=== PATIENT | male | born 1980 | race Caucasian/White ===

== ENCOUNTER 2023-09-25 18:31 | Observation (INO) | payer BC, SELFPAY ==
[2023-09-25 15:57] VITALS: BP 117/69
[2023-09-25 16:10] VITALS: BP 131/73
[2023-09-25 17:13] VITALS: BMI 30.4
[2023-09-25] MEDS: NSS 500 IV (17:15)
--- NOTE | 2023-09-25 17:22 | ED.GENMED ---
History of Present Illness
General
Chief Complaint: DVT/Possible Blood Clot
Source: patient
Exam Limitations: none
Time Seen by Provider: 09/25/23 16:13
Travel History
Have you had any contact with someone who has COVID-19?: No
Do you have any symptoms of coronavirus? Fever > 100 degrees, chills, cough, shortness of breath, sore throat, loss of taste or smell, muscle aches, or headache?: No
History of Present Illness
History of Present Illness:
43-year-old male started with left leg calf pain after a flight to [place] about 2 weeks ago. Pain has been ongoing. Had an initial ultrasound that was negative. However pain is progressed. Now swelling above the knee into the thigh. Was seen by
orthopedic for further evaluation. No chest pain or shortness of breath although patient was near syncope in the doctor's office today.
Past History
Past History
ED Past Medical History: None
ED Past Surgical History: Cardiac (As a child)
Review of Systems
Review of Systems
All Other Systems: Not applicable
Respiratory: Denies trouble breathing
Cardiac: Reports syncope (Near syncope); Denies chest pain
ABD/GI: Reports no symptoms; Denies bloody stools or black stools
Phy Exam
Physical Exam
Physical Exam:
GENERAL: Alert and oriented in no apparent distress
EYE: Orbits normal.
NECK: Supple
CARDIAC: Regular rate and rhythm without any obvious murmurs.
LUNGS: Clear breath sounds,normal
ABDOMEN: Soft, without focal tenderness or distention
NEUROLOGICAL: Alert and oriented , grossly non-focal
SKIN: Warm and dry, no rash or lesion, no discoloration, skin intact.
MUSCULOSKELETAL: Moderate swelling left lower leg with mild color changes below the knee. Good distal pulses and color. Mild swelling to the left thigh.
PSYCH: Normal and appropriate interaction.
Course
Orders/Labs/Results
Orders:
Orders
09/25/23 Dinner
Regular
At Your Request: Full Participation
Does patient need a safe tray?: No
09/25/23 16:03
Legs, left US [US Periph Venous LOWER Ext LT] Urgent
Comment:
Reason For Exam: pain/swelling
09/25/23 17:09
Electrocardiogram (*1) Stat
Reason for Study: Other
Other Reason for Exam: chest pain
Cardiac Monitoring- Treatment ONCE
IV Insert/Care/Rem.- Treatment PRN
0.9% Sodium Chloride 500 ml [Nss] 500 ml IV BOLUS
Pharmacy Request to Place See Dose Instructions PO NOW STA
Discontinue all Active Warfarin orders?: Yes
Nursing to Place Non Medication Order As Directed
Physician Order: PTT 6 hours after initial start of Heparin infusion
Above order entered?: Yes
Pulse Ox/cont/shift [RESP] Stat
Quantity: 1
09/25/23 17:15
Basic Metabolic Panel Urgent
Complete Blood Count/With Diff Urgent
NT-proBNP Urgent
PTT Urgent
Comment: Obtain baseline before beginning heparin infusion if not already collected
Troponin I Urgent
09/25/23 17:29
Heparin 5,000 units .ROUTE .STK-MED ONE
Heparin 58106 Units/250 ml 25,000 units in 250 ml .ROUTE .STK-MED
09/25/23 17:51
Heparin 8,600 units IV NOW STA
Nursing to Place Non Medication Order As Directed
Physician Order: PTT 6 hours after initial start of Heparin infusion
Above order entered?: Yes
09/25/23 18:00
Heparin 25037 Units/250 ml 25,000 units in 250 ml IV PER PROTOCOL
Weight to be used for heparin protocol in kilograms (kg):: 107.2
Protocol:: DVT/PE
PTT Goal Range to be used:: PTT 73 to 111 seconds
Order type:: Initial
INITIAL Infusion Dose (UNITS/KG/hr) & then follow protocol:: 18 units/kg/hr
Infusion Dose in UNITS/hr & then follow protocol (UNITS/hr):: 1,900
INFUSION RATE in mL/hr & then follow protocol (mL/hr):: 19
For DVT/PE algorithm, re-bolus for low PTT?: Yes
PTT less than or equal to 64 seconds:: Re-bolus 80 units/kg (max 10,000units). Increase by 400 units/hr
(+ 4mL/hr)
PTT 64.1 to 72.9 seconds:: Re-bolus 40 units/kg (max 5,000 units). Increase by 200 units/hr
(+ 2mL/hr)
PTT 73 to 111 seconds:: Target Range. No change in rate.
PTT 111.1 to 130.9 seconds:: Decrease rate by 200 units/hr (- 2 mL/hr)
PTT 131 to 199.9 seconds:: HOLD for 1 hr. Then decrease by 300 units/hr (- 3mL/hr)
PTT greater than or equal to 200 seconds:: HOLD for 2 hrs & Notify Provider. Then decrease by 400 units/hr
(- 4mL/hr)
Lab follow-up:: Each change, PTT q6h until 2 consecutive are therapeutic. Then
PTT daily.
Pharmacy Request to Place See Dose Instructions IV DIRECTED
09/25/23 18:03
Heparin 8,600 units IV PRN PRN
09/25/23 18:04
Heparin 4,300 units IV PRN PRN
09/25/23 18:15
CT Chest Pe Study Urgent
Comment:
Reason For Exam: extensive dvt. near syncope
09/25/23 18:19
Admit/Transfer Patient As Directed
Co-Sign Provider:
Level of Care: Observation services
Assign to:: Telemetry
Physician / Group: [place]
Diagnosis: dvt
Reason for Telemetry: Arrhythmia
Date to Stop Telemetry: 09/28/23
Time to Stop Telemetry: 11:00
Code Status As Directed
Resuscitation Status: Full Code
09/25/23 19:36
VTE Contraindication Routine
VTE Mechanical Device Contraindication: Medical Contraindication
Pharmocologic Contraindication: Medical Contraindication
Heparin Protocol- PTT Orders As Directed
PTT per Heparin protocol: -Obtain CBC and baseline PTT - if not already collected.
-Obtain PTT 6 hours from start of infusion. Then, every 6 hours until 2 consecutive
PTT's are therapeutic. Then, PTT Daily.
-With each rate change, obtain PTT every 6 hours until 2 consecutive PTT's are
therapeutic. Then, PTT Daily.
Activity As Directed
Activity Level: As Tolerated
Notify MD As Directed
Notify physician if: PTT is greater than or equal to 200.
Vital Signs As Directed
Frequency: Per unit guidelines
09/26/23 00:15
PTT Urgent
09/26/23 06:00
Complete Blood Count/With Diff IN AM
Comprehensive Metabolic Panel IN AM
09/27/23 06:00
Complete Blood Count/No Diff Q2D
Comment: notify provider: Platelet count < 130,000 or decrease by 50% from baseline
09/28/23 11:00
DC Protocol for Telemetry ONCE
09/29/23 06:00
Complete Blood Count/No Diff Q2D
Comment: notify provider: Platelet count < 130,000 or decrease by 50% from baseline
10/01/23 06:00
Complete Blood Count/No Diff Q2D
Comment: notify provider: Platelet count < 130,000 or decrease by 50% from baseline
10/03/23 06:00
Complete Blood Count/No Diff Q2D
Comment: notify provider: Platelet count < 130,000 or decrease by 50% from baseline
10/05/23 06:00
Complete Blood Count/No Diff Q2D
Comment: notify provider: Platelet count < 130,000 or decrease by 50% from baseline
10/07/23 06:00
Complete Blood Count/No Diff Q2D
Comment: notify provider: Platelet count < 130,000 or decrease by 50% from baseline
10/09/23 06:00
Complete Blood Count/No Diff Q2D
Comment: notify provider: Platelet count < 130,000 or decrease by 50% from baseline
10/11/23 06:00
Complete Blood Count/No Diff Q2D
Comment: notify provider: Platelet count < 130,000 or decrease by 50% from baseline
Abnormal Lab Results
09/25/23
17:15
RBC 4.20 L 10^6/uL
(4.70-6.10)
Hgb 12.9 L g/dL
(13.0-18.0)
Hct 36.6 L %
(39.0-52.0)
Absolute Neuts (auto) 7.2 H 10^3/uL
(1.4-6.5)
Absolute Monos (auto) 1.4 H 10^3/uL
(0.1-0.6)
Lymphocytes % 17.0 L %
(20.5-51.1)
Monocytes % 12.8 H %
(1.7-9.3)
Sodium 133 L mmol/L
(135-145)
Chloride 96 L mmol/L
(98-107)
Glucose 109 H mg/dl
(70-99)
09/25/23 17:15
09/25/23 17:15
Vital Signs
Initial and Last Documented VS:
Initial Vital Signs
Temp Pulse Resp BP Pulse Ox
98.7 F 94 18 117/69 98
09/25/23 15:57 09/25/23 15:57 09/25/23 15:57 09/25/23 15:57 09/25/23 15:57
Last Documented Vital Signs
Temp Pulse Resp BP Pulse Ox
97.6 F 84 20 104/74 98
09/25/23 19:45 09/25/23 19:45 09/25/23 19:45 09/25/23 19:45 09/25/23 19:45
*Radiology
Radiology exam reviewed: radiology read reviewed (Extensive DVT)
*Pulse Oximetry
Patient hypoxic: no
*Hearing Instrument Specialist Interpretation
Rate: normal
Interpretation: normal
Heart Rate: 80
Rhythm: sinus
*Critical Care Note
Total Time (30-74mins, 75-104mins- exclusive of procedures): Not Applicable
Update Note
Update Note:
Extensive DVT. Warrants heparin. CT chest negative.
ED Attending Note
-
Portions of this chart may have been created with voice recognition software.� Occasional wrong word or��sound alike� substitutions may have occurred due to the inherent limitations of voice recognition software.
Discharge Plan
Departure
Patient Disposition: Admit
Date of Disposition: 09/25/23
Time of Disposition: 18:16
Presentation/result/management discussed w/ accepting MD/DO: Hospitalist
Discharge Problem:
Extensive DVT left leg
Interventions
Interventions:
*Risk Screen - Suicide Last Done: 09/25/23 15:57
*General Assessment Last Done: 09/25/23 15:57
*Neglect/Abuse Screening Last Done: 09/25/23 15:57
ED- Fall Risk Assessment Last Done: 09/25/23 19:24
*ED COVID-19 Vaccine History Last Done: 09/25/23 16:02
*Nursing Disposition Last Done: 09/25/23 19:24
ED- Cardiac Assessment Last Done: 09/25/23 17:13
ED- Pulmonary Assessment Last Done: 09/25/23 17:24
ED-Peripheral Vascular Assessment Last Done: 09/25/23 17:13
ED-Skin Assessment Last Done: 09/25/23 17:13
Discharge Date and Time
Discharge Date/Time: 09/25/23 19:26
[2023-09-25 17:32] LABS: % Basophils 0.4 % (0-2); % Immature Granulocytes 0.3 % (0-0.5); % Monocytes 12.8 % (1.7-9.3); % Neutrophils 68.5 % (42.2-75.2); Absolute Eosinophils 0.1 10^3/uL (0-0.7); Absolute Lymphocytes 1.8 10^3/uL (1.2-3.4); Absolute Monocytes 1.4 10^3/uL (0.1-0.6); Absolute Neutrophils 7.2 10^3/uL (1.4-6.5); Hematocrit 36.6 % (39.0-52.0); Hemoglobin 12.9 g/dL (13.0-18.0); Mean Corp Hgb Conc. 35.2 g/dL (33.0-37.0); Mean Corpuscular Hgb 30.7 pg (27.0-31.0); Mean Corpuscular Volume 87.1 fL (80.0-94.0); Mean Platelet Volume 9.3 fL (7.4-10.4); Nucleated Red Blood Cells % 0 % (-); Platelet Count 288 10^3/uL (130-400); Red Cell Dist. Width 12.2 % (11.5-14.5); White Blood Cell Count 10.5 10^3/uL (4.8-10.8)
[2023-09-25 17:41] LABS: APTT 30.3 Sec (23.4-35.0)
[2023-09-25 17:45] LABS: Blood Urea Nitrogen 17 mg/dl (9-20); Calcium 8.9 mg/dl (8.4-10.2); Carbon Dioxide 26 mmol/L (22-30); Chloride 96 mmol/L (98-107); Estimated Creatinine Clearance > 125 ml/min; Glucose 109 mg/dl (70-99); Potassium 4.9 mmol/L (3.5-5.1); Sodium 133 mmol/L (135-145); eGFR > 60.00
[2023-09-25 18:03] LABS: NT-proBNP 36.9 pg/ml; Troponin I < 0.012 ng/ml
[2023-09-25] MEDS: HEPARIN 8600 UNITS IV (18:07)
[2023-09-25] MEDS: HEPARIN 25000 UNITS/250 ML IV (18:08)
--- NOTE | 2023-09-25 18:21 | HPS.HSE ---
Family Physician
-
Family Physician: Rian Ledbetter
Chief Complaint
-
left calf pain
History of Present Illness
43-year-old male no past medical history of presenting with left calf pain after recent flight to [place] a few weeks prior. Patient noticed left lower extremity swelling and pain after he got to [place]. After he came back 2 weeks ago he had an
ultrasound at urgent care which did not show any evidence of DVT. He continued to have severe left lower extremity pain inhibiting walking. He did have some tingling of the left lower extremity at times. He was recommended to follow-up with his
primary care physician. Primary care physician ordered MRI to evaluate for pain and swelling which he did not have yet. He eventually saw orthopedic doctor today who was concerned about DVT and sent him to the emergency room. While at the
orthopedic office today patient was in a lot of pain and felt dizzy and almost like he was going to pass out. He denies any shortness of breath, cough or chest pain.
He denies any family history of blood clots. He denies any recent surgeries and he had COVID infection a year and a half ago.
Drinks alcohol on occasion.
Medical History
Past Medical History
Past Medical History: Reports None
Past Surgical History: Reports None
Social History
Tobacco: Non-smoker
Alcohol: Occasional
Drug: None
Family History
Family History: Not pertinent
Allergies / Home Medications
Allergies reflects when Allergies were last updated in [facility].
Home Medications with original date entered in [facility]
Allergy/Medication List:
Allergies
Allergy/AdvReac Type Severity Reaction Status Date / Time
No Known Allergies Allergy Unverified 09/25/23 15:57
Review of Systems
-
History Source: Patient
A 12 point ROS was completed and negative except as noted: Yes
Constitutional: Reports No Symptoms
EENT: Reports No Symptoms
Respiratory: Reports No Symptoms
Cardiac: Reports No Symptoms
Abdomen/GI: Reports No Symptoms
: Reports No Symptoms
Musculoskeletal: Reports See HPI
Skin: Reports No Symptoms
Neurological: Reports No Symptoms
Endocrine: Reports No Symptoms
Hematologic/Lymphatic: Reports No Symptoms
Psych: Reports No Symptoms
Physical Exam
Vital Signs
Vital Signs
Temp Pulse Resp BP Pulse Ox
98.7 F 64 15 131/73 99
09/25/23 15:57 09/25/23 18:15 09/25/23 18:15 09/25/23 16:10 09/25/23 17:24
Physical Exam
General: Well Developed, Well Nourished and No Apparent Distress
HEENT: NormoCephalic, Moist mucous membranes and Atraumatic
Respiratory: Clear
Cardiac: S1/S2 and Regular Rhythm; No Murmur or Rub
GI: Soft, Non Tender, Non Distended and Normal Bowel Sounds; No Organomegaly
Rectal: Deferred by Provider
Musculoskeletal: No Clubbing, No Cyanosis, No Edema and Other (left calf swelling and tenderness )
Skin: No Rash
Neuro: Nonfocal/grossly intact
Laboratory Results
-
09/25/23 17:15
09/25/23 17:15
Laboratory Results
APTT 30.3 Sec (23.4-35.0) 09/25/23 17:15
Troponin I < 0.012 ng/ml 09/25/23 17:15
Data Reviewed
-
Lab Data: Labs Reviewed by me
Old Records: Reviewed
Impression/Plan
-
IMPRESSION:
PLAN:
# Provoked extensive DVT of left lower extremity secondary to [place] flight
-Pulses of left lower extremity intact without evidence of compartment syndrome
-Venous ultrasound shows thrombus formation in the left common femoral vein/superficial femoral vein/popliteal vein/peroneal vein/posterior tibial vein/gastrocnemius vein
-Heparin drip
-Check CT PE to evaluate for pulmonary embolism given presyncopal episode
-Consider eventual outpatient hypercoagulability workup
Full code
DVT prophylaxis�heparin drip
Regular diet
[2023-09-25 19:45] VITALS: BP 104/74
--- NOTE | 2023-09-25 20:00 | PTCARENOTE ---
Pt arrived to unit from ED and is ambulating independently with single point cane. VS on admission stable. IV heparin gtt infusing at 19 mL/hr. Pt oriented to room, call martell within reach. Will continue to monitor.
[2023-09-25 20:05] VITALS: BMI 29.9
[2023-09-25 22:40] VITALS: BP 134/87
[2023-09-26 01:09] LABS: APTT 48.2 Sec (23.4-35.0)
[2023-09-26] MEDS: HEPARIN 8600 UNITS IV (01:38)
[2023-09-26 02:54] VITALS: BP 120/71
[2023-09-26] MEDS: ULTRAM 50 MG PO ×4 (04:18→23:23)
--- NOTE | 2023-09-26 04:24 | PTCARENOTE ---
Pt reports 10/10 pain throughout left leg. Pt reports taking tramadol 50mg q6h PRN at home for similar pain. House DIRECTOR FURNITURE Priti Grider notified, order placed for PRN Tramadol 50mg q6h and provided to pt. Will continue to monitor.
[2023-09-26 07:30] VITALS: BP 117/74
[2023-09-26] MEDS: HEPARIN 25000 UNITS/250 ML IV ×2 (08:16→19:33)
[2023-09-26 08:25] LABS: % Basophils 0.5 % (0-2); % Eosinophils 0.9 % (0-6); % Immature Granulocytes 0.3 % (0-0.5); % Lymphocytes 16.8 % (20.5-51.1); % Monocytes 12.9 % (1.7-9.3); % Neutrophils 68.6 % (42.2-75.2); Absolute Eosinophils 0.1 10^3/uL (0-0.7); Absolute Lymphocytes 1.5 10^3/uL (1.2-3.4); Absolute Monocytes 1.1 10^3/uL (0.1-0.6); Absolute Neutrophils 6.1 10^3/uL (1.4-6.5); Hematocrit 36.8 % (39.0-52.0); Hemoglobin 12.9 g/dL (13.0-18.0); Mean Corp Hgb Conc. 35.1 g/dL (33.0-37.0); Mean Corpuscular Hgb 30.6 pg (27.0-31.0); Mean Corpuscular Volume 87.2 fL (80.0-94.0); Mean Platelet Volume 9.3 fL (7.4-10.4); Nucleated Red Blood Cells % 0 % (-); Platelet Count 278 10^3/uL (130-400); Red Blood Cell Count 4.22 10^6/uL (4.70-6.10); Red Cell Dist. Width 12.4 % (11.5-14.5); White Blood Cell Count 8.8 10^3/uL (4.8-10.8)
[2023-09-26 08:36] LABS: APTT 91.9 Sec (23.4-35.0)
[2023-09-26 09:10] LABS: ALT (SGPT) 201 U/L (0-50); AST (SGOT) 92 U/L (17-59); Albumin 3.6 g/dl (3.5-5.0); Alkaline Phosphatase 224 U/L (38-126); Blood Urea Nitrogen 12 mg/dl (9-20); Calcium 8.3 mg/dl (8.4-10.2); Carbon Dioxide 24 mmol/L (22-30); Chloride 103 mmol/L (98-107); Estimated Creatinine Clearance 122 ml/min; Glucose 104 mg/dl (70-99); Potassium 4.3 mmol/L (3.5-5.1); Sodium 133 mmol/L (135-145); Total Bilirubin 1.1 mg/dl (0.2-1.3); Total Protein 6.4 g/dl (6.3-8.2); eGFR > 60.00
--- NOTE | 2023-09-26 11:32 | CON.VAS ---
Addendum entered and electronically signed by Enio Haynes MD 09/26/23 17:15:
As noted below. I reviewed his ultrasound images and reports. 43-year-old male with history as noted below. Following a flight to [place] on September 07, 2023 (approximately 18 days ago) he developed acute onset of left calf pain and edema.
Affected his ambulation as noted. He wrote out his whole trip in [place], and then flew back at which time pain was worse. Initial ultrasound done at [facility] was negative for DVT. (Had seen his primary care). Subsequently saw an
orthopedist and due to worsening pain and concern for DVT was recommended emergency room. Ultrasound here confirmed DVT. Patient denies any prior history of DVT. No family history of DVT. No significant past medical history. Denies any tobacco
use.
Notes continued left thigh and calf pain to the point it is quite significant. He has difficulty ambulating currently. Denies any shortness of breath.
On exam/he is awake and alert. He is in no acute distress. Breathing is unlabored. Abdomen is soft, nondistended, nontender. Lower extremity with left thigh and calf, mainly calf edema. Calf is full but soft. Compartments are all soft. He is
tender throughout the calf. Thigh is also tender especially medially. Has mild erythema medially. Thigh is softer than calf and less edematous than calf. Feet are both warm. No phlegmasia. Palpable pedal pulses bilaterally.
Duplex reviewed.
Plan/ Acute LLE DVT. Though iliac segment appears spared based on ultrasound, not the clearest of ultrasound images. In addition, common femoral involvement with partial thrombosis is noted. Therefore I did extensive discussion with him. I
discussed recommendations based on ATTRACT trial for invasive therapies for iliofemoral DVT. (Subset of iliofemoral patient's seem to have benefit based on trial results though generalized equipoise between conservative anticoagulation treatment
versus invasive therapy). However, based on significant symptoms that are not abating, limitation with ambulation, common femoral involvement, and his young age, I did offer venography with potential catheter-based treatment. Discussed attempted
mechanical aspiration versus staged catheter directed thrombolysis. He is quite adamant against any procedure where he will have to lay relatively still or repeated trips as he is very uncomfortable. Alternatively I offered anticoagulation alone
as a treatment alternative with compression therapy. I did discuss based on the duration/chronicity of his clot, no guarantee with invasive procedures. He is amenable to trialing a single-stage percutaneous aspiration therapy. He does understand
the potential need for bailout catheter directed thrombolysis. I also discussed the possible need for adjunctive stenting if May-Thurner stenosis is unmasked. Procedural risk/benefits/alternatives all extensively discussed. He understands all
wishes to proceed. Plan Penumbra aspiration thrombectomy left lower extremity DVT in AM. N.p.o. after midnight.
Original Note:
Consultation
Consultation Request
Date/Time Consultation Performed: 09/26/23 1110
Requesting Provider: Hospitalist, Adrián Avilez MD
Performing Provider: Nicole Vazquez NP-C for Enio Haynes MD
Reason for Consultation: LLE DVT
Medical History
-
Chief Complaint: Left lower extremity pain and swelling
History of Present Illness:
This is a 43-year-old male patient with no significant past medical history who reported to [facility] on 09/25/2023 at the recommendation of an outpatient orthopedic physician for worsening left lower extremity edema and pain. Patient reports
that he had a recent flight from the [facility] to [place] on September 07, 2023 following his flight while in [place] he noted left calf pain and swelling that did limit his walking at the time but was manageable. Upon returning to the
[place] area on September 12 he noted continued left calf pain and edema now notably affecting his ambulation; this prompted him to seek evaluation at an urgent care. He denied erythema and warmth of skin. He was seen by a [facility]
urgent care provider who recommended left lower extremity ultrasound to rule out DVT. Patient reports at that time ultrasound was negative for DVT. He reports pain and edema was unchanged until roughly this past Friday (09/22/23) when pain and edema
began to progress/worsen and extend up from his calf to his left thigh. This made ambulating progressively worse, he was seen by his PCP who felt symptoms could be orthopedic in nature and ordered an MRI. However, pain continued to worsen making
walking almost 'impossible' for him, and then began to involve his knee; prompting an emergent orthopedic evaluation yesterday, 09/25/23. The outpatient orthopedic physician he saw felt his pain and edema was less likely to be joint related and urged
patient to seek reevaluation for DVT at an emergency room. ED evaluation here at [place] revealed extensive occlusive DVT of left lower extremity involving left common femoral vein, superficial femoral vein, popliteal vein, peroneal vein and
posterior tibial vein as well as the gastrocnemius vein. CT chest negative for PE, and patient was initiated on heparin infusion with admittance to the hospital. Vascular surgery has been consulted regarding surgical options for the extensive
occlusive DVT. Patient denies personal or familial history of DVT or PE. He denies experiencing previous signs and symptoms of DVT. Denies history of vascular surgeries in the past.
Past Medical History
Past Medical History: None
Past Surgical History: None
Social History
Tobacco: Non-Smoker
Alcohol: Occasional
Drug: None
Family History
Family History: Reviewed & Not Pertinent and Other (Patient denies familial and personal history of blood clot, DVT, PE)
Allergies / Home Medications
Allergy/AdvReac Type Severity Reaction Status Date / Time
No Known Allergies Allergy Unverified 09/25/23 15:57
Medication Instructions Recorded Confirmed Type
tramadol 50 mg tablet 50 mg PO Q6H PRN Left lower leg 09/25/23 09/25/23 History
pain
Review of Systems
-
History Source: Patient
Constitutional: Reports No Symptoms
EENT: Reports No Symptoms
Respiratory: Reports No Symptoms
Cardiac: Reports No Symptoms and Syncope
Vascular: Denies Numbness or Tingling
Abdomen/GI: Reports No Symptoms
: Reports No Symptoms
Musculoskeletal: Reports Edema and Other (03/27 pain described as pressure and burning of left lower extremity)
Skin: Reports No Symptoms
Neurological: Reports No Symptoms
Endocrine: Reports No Symptoms
Physical Exam
Vital Signs
Temp Pulse Resp BP Pulse Ox
98.4 F 85 20 117/74 94
09/26/23 07:30 09/26/23 07:30 09/26/23 07:30 09/26/23 07:30 09/26/23 07:30
Lab Results
09/26/23 08:01
09/26/23 08:01
Troponin I < 0.012 ng/ml 09/25/23 17:15
[id number]-B-[id number] Pept 36.9 pg/ml 09/25/23 17:15
Physical Exam
General: No Apparent Distress and Comfortable
HEENT: Normocephalic, Anicteric and Atraumatic
Respiratory: Non Labored Respirations
Cardiac: Negative JVD
GI: Soft, Non Tender and Non Distended
Musculoskeletal: Edema (+1/2 left lower extremity, nonpitting edema)
Skin: Warm and Dry
Neuro: AO x 3
Pulses: Left Dorsalis Pedis: +2 and Left Posterior Tibial: +2
Assessment / Plan
-
Assessment: 43-year-old male with no segment past medical history presents with lower extremity edema and pain, ultrasound confirmed extensive DVT of left lower extremity at left common femoral vein, superficial femoral vein, popliteal vein,
peroneal vein and posterior tibial vein as well as the gastrocnemius vein.
Plan:
Explained in detail to patient surgical option of pharmacological/mechanical DVT lysis procedure, at this time patient does not believe he would have the ability to lay flat while venous catheter is in place for tPA administration. However,
patient was agreeable to obtaining further diagnostic imaging (will start with ultrasound of IVC/iliac veins). He may require CT venogram to better understand extent of DVT if ultrasound cannot provided adequate imaging. Following further
diagnostic imaging will then provide surgical recommendation to patient. Final surgical plan per attending Dr. Enio Haynes.
Agree with heparin infusion for anticoagulation.
Would recommend left lower extremity Jaiden wrap from base of toes to upper thigh with gentle to moderate compression when patient can tolerate (currently patient reports pain with palpation and unable to tolerate compression).
I performed this shared service with the attending. I evaluated the patient [id number] and have entered clinical documentation as shown in the encounter note. I performed the following component(s):�history and physical exam. Note that medical
decision making is not final until attested by vascular attending.
Data Reviewed
-
CT Scan: Report Reviewed by me, Discussed with Physician and Discussed with Patient
Ultrasound: Report Reviewed by me, Discussed with Physician and Discussed with Patient
Labs: Labs Reviewed by me and Discussed with Physician
[2023-09-26 11:46] VITALS: BP 128/75
--- NOTE | 2023-09-26 12:32 | CM ---
Patient seen bedside, initial assessment completed. Patient reports he resides with his and son in a multiple story home. Patient reports he is currently borrowing his father in laws cane, and would like to look into getting a pair of crutches.
Patient denies VN or SNF. Patient confirms PCP Dr. Ledbetter, pharmacy [facility] in [place]. OBS form reviewed, refused to sign, placed in patients chart. CM will continue to follow for discharge planning needs.
Plan; home, watch for needs upon further medical evaluation.
--- NOTE | 2023-09-26 13:32 | W.PN.HOSP.TC ---
Today's Communication/Plan
-
f/u IVC/illiac vein Doppler test
LE SANTOSH wrapping
maintain on IV heparin drip
Assessment / Plan
Assessment / Plan
# Provoked extensive DVT of left lower extremity secondary to prolonged travel
-Pulses of left lower extremity intact without evidence of compartment syndrome
-Venous ultrasound shows thrombus formation in the left common femoral vein/superficial femoral vein/popliteal vein/peroneal vein/posterior tibial vein/gastrocnemius vein
-CT chest PE negative for Pulmonary embolism
-maintain on heparin drip
-Vascular surg evaluated for possible catheter guided intervention - IVC/illiac vein doppler ordered by [facility] for further evaluation
Full code
DVT prophylaxis�heparin drip
Anticipated Discharge: Within 24 hours
Subjective/Interval History
-
Date of Service: September 26, 2023
some left leg pain
no issues overnight
Objective Data
-
Labs:
Laboratory Results
09/26/23 09/26/23
08:01 14:00
WBC 8.8
Hgb 12.9 L
Hct 36.8 L
Plt Count 278
APTT 91.9 H Pending
Sodium 133 L
Potassium 4.3
Chloride 103
Carbon Dioxide 24
BUN 12
Creatinine 0.9
Glucose 104 H
Calcium 8.3 L
Total Bilirubin 1.1
AST 92 H
ALT 201 H
Alkaline Phosphatase 224 H
Vital Signs:
Vital Signs
Temp Pulse Resp BP Pulse Ox
99.1 F 64 22 128/75 97
09/26/23 11:46 09/26/23 11:46 09/26/23 11:46 09/26/23 11:46 09/26/23 11:46
I&O
09/25/23 09/26/23 09/27/23
06:59 06:59 06:59
Intake Total 680 / 680
Balance 680 / 680
Review of Systems
-
Respiratory: Reports No Symptoms
Cardiac: Reports No Symptoms
Abdomen/GI: Reports No Symptoms
Physical Exam
-
General: Comfortable
HEENT: Negative Oxygen
Respiratory: Clear to Auscultation
Cardiac: Regular Rhythm and S1/S2; Negative Murmur or Rub
GI: Soft, Nontender and Nondistended
Musculoskeletal: No Edema
Neuro: Awake, Alert, Oriented, No Motor Deficits and Nonfocal/Grossly Intact
Psych: Calm
[2023-09-26 15:08] LABS: APTT 91.5 Sec (23.4-35.0)
[2023-09-26 15:50] VITALS: BP 136/74
[2023-09-26] MEDS: TYLENOL 650 MG PO (16:38)
[2023-09-26 19:00] VITALS: BP 131/81
[2023-09-26 23:00] VITALS: BP 124/77
[2023-09-27] VITALS (16 sets, daily range): BP systolic 102–140; BP diastolic 46–84
[2023-09-27 06:10] LABS: Hematocrit 35.4 % (39.0-52.0); Hemoglobin 12.4 g/dL (13.0-18.0); Mean Corpuscular Hgb 30.4 pg (27.0-31.0); Mean Corpuscular Volume 86.8 fL (80.0-94.0); Mean Platelet Volume 9.2 fL (7.4-10.4); Platelet Count 291 10^3/uL (130-400); Red Blood Cell Count 4.08 10^6/uL (4.70-6.10); Red Cell Dist. Width 12.3 % (11.5-14.5); White Blood Cell Count 7.7 10^3/uL (4.8-10.8)
[2023-09-27] MEDS: HEPARIN 4300 UNITS IV (06:35)
[2023-09-27 06:41] LABS: Blood Urea Nitrogen 11 mg/dl (9-20); Calcium 8.3 mg/dl (8.4-10.2); Carbon Dioxide 26 mmol/L (22-30); Chloride 101 mmol/L (98-107); Estimated Creatinine Clearance 122 ml/min; Glucose 106 mg/dl (70-99); Potassium 3.9 mmol/L (3.5-5.1); Sodium 133 mmol/L (135-145); eGFR > 60.00
--- NOTE | 2023-09-27 07:56 | W.PN.HOSP.TC ---
Today's Communication/Plan
-
for lab support tech today
continue heparin drip
Assessment / Plan
Assessment / Plan
# Provoked extensive DVT of left lower extremity secondary to prolonged travel
-Pulses of left lower extremity intact without evidence of compartment syndrome
-Venous ultrasound shows thrombus formation in the left common femoral vein/superficial femoral vein/popliteal vein/peroneal vein/posterior tibial vein/gastrocnemius vein
-CT chest PE negative for Pulmonary embolism
-Abd US negative for IVC clot. visualized portion of illiac vein did not show thrombus either
-maintain on heparin drip
-Vasc sx evaluated and patient going for catheter guided thromobolysis today
Full code
DVT prophylaxis�heparin drip
Anticipated Discharge: Within 24 hours
Subjective/Interval History
-
Date of Service: September 27, 2023
pain in LLE
no other issues of chest pain/shortness breath
no acute issues
Objective Data
-
Labs:
Laboratory Results
09/27/23 09/27/23
05:56 12:40
WBC 7.7
Hgb 12.4 L
Hct 35.4 L
Plt Count 291
APTT 72.0 H Pending
Sodium 133 L
Potassium 3.9
Chloride 101
Carbon Dioxide 26
BUN 11
Creatinine 0.9
Glucose 106 H
Calcium 8.3 L
Vital Signs:
Vital Signs
Temp Pulse Resp BP Pulse Ox
98.6 F 76 18 137/72 96
09/27/23 03:00 09/27/23 03:00 09/27/23 03:00 09/27/23 03:00 09/27/23 03:00
I&O
09/26/23 09/27/23 09/28/23
06:59 06:59 06:59
Intake Total 1730 / 1730
Balance 1729
Review of Systems
-
Respiratory: Reports No Symptoms
Cardiac: Reports No Symptoms
Abdomen/GI: Reports No Symptoms
Physical Exam
-
General: Comfortable
HEENT: Negative Oxygen
Respiratory: Clear to Auscultation
Cardiac: Regular Rhythm and S1/S2; Negative Murmur or Rub
GI: Soft, Nontender and Nondistended
Musculoskeletal: Edema, Left Lower Extrem (SANTOSH wrapped from mid thigh down)
Neuro: Awake, Alert, Oriented, No Motor Deficits and Nonfocal/Grossly Intact
Psych: Calm
[2023-09-27] MEDS: HEPARIN 25000 UNITS/250 ML IV ×2 (07:58→19:11)
--- NOTE | 2023-09-27 08:30 | W.SUR.PREOP ---
Pre-Operative Surgical Note
-
I have examined this patient prior to the performance of the scheduled procedure.
The patient's condition is unchanged from the time of the current History and
Physical and the patient is able to undergo the scheduled procedure.
Discussed risks with patient including but not limited to bleeding, arterial/venous injury, thrombosis, recurrent thrombosis, inability to remove/dissolve thrombus, pulmonary embolus. He understands all and wishes to proceed.
--- NOTE | 2023-09-27 09:58 | W.IMMPOSTOP ---
Surgical Immed Post Op Note
-
Primary Surgeon: [place]
Assisting Surgeon: none
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
Post-op Diagnosis: same
Procedure Performed: 1) LLE ascending venogram, 2) Central venogram, 3) Penumbra mechanical aspiration thrombectomy L femoral vein/common femoral vein, 4) TOLL BRIDGE ATTENDANT 8mm x 10cm Left femoral vein, 5) IVUS L femoral/CF/iliac veins
Anesthesia Type: local, sedation
Specimen / Cultures: none
Estimated Blood Loss: 175cc
Complications: none
Operative Findings: Clot retrieved significantly, improved flow channel. Romi Temple noted. However, large iliac veins, and appropriate sized stents not available.
[2023-09-27] MEDS: NSS 1000 IV (10:27)
--- NOTE | 2023-09-27 11:14 | PTCARENOTE ---
Received pt from PACU, A,A+O x 3. LT leg baudilio wrapped with dressing D+I. (+) popliteal pulse noted. Heparin gtt infusing at 25ml/hr. Will continue to monitor.
[2023-09-27] MEDS: ULTRAM 50 MG PO ×2 (12:04→22:19)
[2023-09-27 13:03] LABS: APTT 118.2 Sec (23.4-35.0)
[2023-09-27] MEDS: TYLENOL 650 MG PO (16:30)
[2023-09-27 19:20] LABS: APTT 92.9 Sec (23.4-35.0)
[2023-09-28 01:48] LABS: APTT 90.9 Sec (23.4-35.0)
[2023-09-28 03:00] VITALS: BP 139/82
[2023-09-28 07:00] VITALS: BP 129/83
[2023-09-28] MEDS: ELIQUIS 10 MG PO (07:44)
--- NOTE | 2023-09-28 08:18 | W.PN.HOSP.TC ---
Today's Communication/Plan
-
d/c home
Assessment / Plan
Assessment / Plan
# Provoked extensive DVT of left lower extremity secondary to prolonged travel
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
-Pulses of left lower extremity intact without evidence of compartment syndrome
-Venous ultrasound shows thrombus formation in the left common femoral vein/superficial femoral vein/popliteal vein/peroneal vein/posterior tibial vein/gastrocnemius vein
-CT chest PE negative for Pulmonary embolism
-Abd US negative for IVC clot. visualized portion of illiac vein did not show thrombus either
-maintain on heparin drip
-s/p 1) LLE ascending venogram, 2) Central venogram, 3) Penumbra mechanical aspiration thrombectomy L femoral vein/common femoral vein, 4) SEAL EXTRUSION OPERATOR 8mm x 10cm Left femoral vein, 5) IVUS L femoral/CF/iliac veins on 09/27/23
-Patient transitioned to oral eliquis at discharge today.
-Patient to f/u with PCP in 1 week
Full code
DVT prophylaxis�eliquis
More than 30 minutes spent in discharge including
Final examination of the patient
Summarizing hospital stay
Instructions for continuing care to all relevant caregivers
Preparation of discharge records, prescriptions, and referral forms
Total time spent (in minutes): 38 mins
Anticipated Discharge: Today
Subjective/Interval History
-
Date of Service: September 28, 2023
resting comfortably in bed
no issues overnight
Objective Data
-
Labs:
Laboratory Results
09/28/23 09/28/23
01:28 06:11
APTT 90.9 H 77.0 H
Vital Signs:
Vital Signs
Temp Pulse Resp BP Pulse Ox
98.4 F 79 16 139/82 94
09/28/23 03:00 09/28/23 03:00 09/28/23 03:00 09/28/23 03:00 09/28/23 03:00
I&O
09/27/23 09/28/23 09/29/23
06:59 06:59 06:59
Intake Total 1730 / 1730 2084 / 2084
Output Total 1275 / 1275
Balance 1730 / 1730 810 / 810
Review of Systems
-
Respiratory: Reports No Symptoms
Cardiac: Reports No Symptoms
Abdomen/GI: Reports No Symptoms
Physical Exam
-
General: Comfortable
HEENT: Negative Oxygen
Respiratory: Clear to Auscultation
Cardiac: Regular Rhythm and S1/S2; Negative Murmur or Rub
GI: Soft, Nontender and Nondistended
Musculoskeletal: Edema, Left Lower Extrem (SANTOSH wrapped from mid thigh down)
Neuro: Awake, Alert, Oriented, No Motor Deficits and Nonfocal/Grossly Intact
Psych: Calm
--- NOTE | 2023-09-28 08:21 | W.DCSUMMARY ---
Discharge Summary
Discharge Data
Date of Admission: 09/25/23
Date of Discharge: 09/28/23
-
Pending Results: No
Hospital Course
Discharging Physician : Dr Adrián Avilez
Disposition : Home
Primary care physician : Dr Rian ash
Principal Discharge diagnosis :
Left leg extensive thrombus
May thurner syndrome
Chronic Discharge diagnosis :
None
Hospital Course :
Patient is a 43-year-old male with no significant past medical history came to ER for having new onset of left leg pain which started after her weight trip. Patient flew on a [place] on end of September 10 and after reaching there patient noticed some
left leg discomfort, this continued to worsening after traveling back to . Patient had an outpatient ultrasound of lower extremity which was negative for any blood clot. Patient was evaluated by orthopedic surgeon and a repeat ultrasound was
ordered for clinical concern of clot. Patient was found to having extensive clot involving femoral veins down into the tibial/popliteal vein. CT chest PE was done and was negative for any PE. Patient was started on heparin drip. vascular surgery
was involved for evaluation and in light of significant clot burden discussed possible mechanical thrombectomy. Follow-up abdominal ultrasound did not show any clot in abdominal IVC and iliac veins. Patient had uneventful mechanical aspiration
thrombectomy of left femoral/common femoral vein with BOOM STICK MAN and of 10 cm segment of left femoral vein as well. Intravenous ultrasound showing possible May-Thurner syndrome although large iliac veins and appropriate sized stents were not available.
Postprocedure patient was started on Eliquis and discharged home with follow-up with primary physician and vascular surgeon office.
Important imaging findings :
Peripheral Venous US LLE
There is thrombus formation in the left common femoral vein, superficial femoral vein, popliteal vein, peroneal vein and posterior tibial vein as well as the gastrocnemius vein. These are all occlusive except for a duplicated left superficial
femoral vein which does not have thrombus. The proximal greater saphenous vein and saphenofemoral junction are patent.
Procedure findings :
Vascular surgery note
1) LLE ascending venogram, 2) Central venogram, 3) Penumbra mechanical aspiration thrombectomy L femoral vein/common femoral vein, 4) BOOM STICK MAN 8mm x 10cm Left femoral vein, 5) IVUS L femoral/CF/iliac veins
Operative Findings:� Clot retrieved significantly, improved flow channel.� Romi Temple noted. � However, large iliac veins, and appropriate sized stents not available.
Discharge Plan
-
Patient Disposition: Home (Routine Discharge)
Discharge Diagnosis/Procedures: Left leg DVT - provoked , mild May thurner syndrome
Condition: Fair
Diet: Regular
Activity: Other activity
Additional Activity: No strenuous exercise involving leg (squats, lift etc..) for next 2 weeks.
Driving Restrictions: No driving for 24 hours
Bathing Restrictions: OK to Shower
Activity Restrictions/Additional Instructions:
Call [facility] to establish as new patient care - [phone]
Referrals:
Rian Ash DO [Family Provider] - in one week
Enio Haynes MD [Active] - in two weeks
Prescriptions:
New
Eliquis 5 mg Tablet
See Rx Instructions .ROUTE .COMPLEX Qty: 74 0RF
Rx Instructions:
Take 2 Tabs Twice daily for 7 Days THEN
Take 1 Tabs Twice daily for maintenance.
acetaminophen 325 mg Tablet
650 mg PO Q6HPRN PRN (Reason: Pain) Qty: 60 0RF
Discontinued
tramadol 50 mg Tablet
50 mg PO Q6H PRN (Reason: Left lower leg pain)
Discharge Orders:
Discharge Patient (As Directed); Ordered 09/28/23
Ordered By: Adrián Avilez
[2023-09-28] MEDS: ULTRAM 50 MG PO (09:18)
--- NOTE | 2023-09-28 09:30 | W.PN.VS ---
Today's Communication / Plan
-
See plan below for today 09/28/2023.
Assessment/Plan
-
Status post mechanical thrombectomy left lower extremity DVT. Transition to oral anticoagulation. Okay for discharge home. Discussed with patient likely will need to stage left iliac stent placement with appropriate size stent. As an outpatient
will obtain left lower extremity repeat duplex venous, as well as CT venogram. Okay for discharge today.
-
Total Time Spent with Patient (in minutes): 10
Subjective Data
-
Date of Service: September 28, 2023
Patient without significant complaints. He notes left leg feels a little better, but still somewhat sore.
Objective Data
-
Vital Signs
Temp Pulse Resp BP Pulse Ox
98.1 F 72 18 129/83 96
09/28/23 07:00 09/28/23 07:00 09/28/23 07:00 09/28/23 07:00 09/28/23 07:00
Intake and Output
09/27/23 09/28/23 09/29/23
06:59 06:59 06:59
Intake Total 1730 / 1730 2085 / 2085
Output Total 1275 / 1275
Balance 1730 / 1730 810 / 810
Intake:
Oral fluids 960 / 960 1240 / 1240
Amount of oral supplement(s) 570 / 570
consumed
IV fluids (Total) 845 / 845
Heparin 25 / 25
NSS 30 / 30
IV piggybacks 200 / 200
Output:
Urine, Voided 1275 / 1275
Other:
Number of approximated MODERATE 2 4
amounts of urine
Lab Results
09/27/23 05:56
09/27/23 05:56
Calcium 8.3 mg/dl (8.4-10.2) L 09/27/23 05:56
Total Bilirubin 1.1 mg/dl (0.2-1.3) 09/26/23 08:01
AST 92 U/L (17-59) H 09/26/23 08:01
ALT 201 U/L (0-50) H 09/26/23 08:01
Alkaline Phosphatase 224 U/L (38-126) H 09/26/23 08:01
Total Protein 6.4 g/dl (6.3-8.2) 09/26/23 08:01
Albumin 3.6 g/dl (3.5-5.0) 09/26/23 08:01
Physical Exam
-
He is awake and alert. Left lower extremity Jaiden bandage removed. Popliteal puncture site flat, no hematoma. Dressing is clean dry and intact. Calf and thigh are softer. Less tender.
--- NOTE | 2023-09-28 09:33 | OR.RPT ---
Operative Report
Operative Report
PROCEDURE DATE: 09/27/2023
Preoperative diagnosis:
1. Acute/subacute left lower extremity extensive DVT.
2. Possible May Thurner left common iliac vein compression.
1. Acute/subacute left lower extremity extensive DVT.
2. May Thurner left common iliac vein compression.
Postoperative diagnosis:
Procedure:
1. Ascending left lower extremity venogram via left popliteal vein puncture.
2. Penumbra mechanical aspiration thrombectomy left femoral and common femoral vein DVT.
3. Balloon angioplasty left femoral vein with 8 mm angioplasty balloon.
4. Intravascular ultrasound (IVUS) assessment of left femoral/common femoral/iliac veins.
5. Supervision and interpretation.
Surgeon: [place]
Location Director: None
Complications: None
Anesthesia: Local, sedation
Fluoroscopy:
11.5 min
81 mGy
15.69 Gy.cm2
Indications for procedure:
Acute/subacute left lower extremity extensive DVT. Common femoral vein involvement, but iliac veins appeared spared on ultrasound. However given significant symptoms, difficulty with ambulation and significant tenderness throughout the extremity
with fullness of the thigh and calf, I offered thrombectomy or thrombolysis as an alternative. Patient was quite adamant not wishing for any catheter directed thrombolysis type procedure. However thrombectomy discussed (mechanical thrombectomy or
pharmacomechanical thrombectomy) in order to alleviate symptoms, as well as reduction of likelihood of post thrombotic syndrome. Risk/benefits/alternatives all fully discussed. Patient understood all wish to proceed.
Description of procedure:
Patient was identified, brought to the operating room. Placed on the table in the PRONE position. After the adequate administration of anesthesia, the patient was prepped and draped in the standard surgical fashion. A standard preoperative
timeout was undertaken and everybody was in agreement with the plan.
The left popliteal vein was punctured under direct duplex ultrasound guidance using a micropuncture kit. I then advanced a 6 Ghanaian sheath over a 0.035 inch wire. Ascending venogram was obtained. This demonstrated extensive thrombus throughout
the femoral vein. There was not even filling seen up to the level of the common femoral vein as the thrombus was occlusive. At this point, I used a floppy angled hydrophilic wire and a glide catheter. With some difficulty I was able to finally
cannulate up to the level of the iliac veins. Once I crossed the region of the inguinal ligament area, my wire and catheter much more freely passed. Pelvic venogram demonstrated patent iliac veins with no evidence of thrombus. But the filling
across the proximal common iliac vein was somewhat slower. This suggested a possible may Thurner like compression. However, I was able to gain wire access into the IVC with a glide wire and then I passed the glide catheter. Cavogram demonstrated
patent vena cava. Of note also the iliac vein (common iliac vein especially) was noted to be of rather reasonable/large size. At this point I exchanged for a stiffer Amplatz wire. The patient had been maintained on a heparin drip, but I gave the
patient an additional 3000 units of intravenous heparin based on his PTT measurement. Now I exchanged my 6 Ghanaian sheath out for a 16 Ghanaian [place] dry seal sheath. This was advanced just into the popliteal vein. Next I prepared my Penumbra system,
utilizing the Penumbra Flash 16 catheter. The catheter was then advanced through the sheath. Once it was just outside of the sheath, the aspiration was activated. The catheter was then run over the wire with aspiration running. Initially there
was not any thrombus in the tubing suggesting it was within the catheter. We advanced the catheter all the way to the common femoral vein where the thrombus ended. We then ran it backwards. Again no thrombus was in the tubing. At this point we
then withdrew the catheter from the sheath and now the aspiration from the machine was able to suck out the thrombus from within the catheter tubing and large amount of thrombus was now seen in the tubing and into the filter. I was very satisfied
with this. We then ran the catheter through an additional pass until we confirmed normal flow. Did so trying to minimize normal blood aspiration. At this point venogram was performed that demonstrated significant clearance of the majority. There
was a little area of irregularity/thrombus on the valve. I then used an 8 mm balloon to angioplasty the site. Demonstrated some improvement. But then I used the penumbra catheter again to spot treat that 1 area. Definitive thrombus extraction
was noted. Completion venogram now demonstrated excellent result with brisk flow through this segment and no significant residual thrombus. At this point, I then switched to an IVUS catheter. I performed IVUS through the femoral vein and iliac
vein system. I did note a significant May Thurner compression of the left common iliac vein via the right common iliac artery. This could be clearly seen on IVUS. My IVUS measurements were performed. However, the vein size was ranging up to at
least 18 to 20 mm in the larger dimension. Unfortunately the largest venous stent I had was a 16 mm stent. We had contacted one of the inbound sales representative from the company the evening before, and they did not have any immediately available 18 or 20 mm
stents. Therefore at this point I felt that placing a smaller stent carries significant risk of stent migration. Therefore I felt that we could staged coming back to perform stenting of the iliac vein, maintaining the patient on anticoagulation.
At this point is therefore very satisfied. I withdrew my catheters and wires. A nylon stitch was placed in a pursestring fashion around the sheath entry site and the sheath was withdrawn and the stitch was tied down and manual pressure also
applied. Hemostasis was fully achieved at the sheath entry site. Jaiden bandage dressings were reapplied. The patient tolerated the procedure well.
== END 2023-09-28 10:30 | disposition home or self-care (01) ==
LOC: 4 WEST ACU 18:31
PROVIDERS: Nurse Practitioner; ADMITTING PHYSICIAN Hospitalist; ATTENDING PHYSICIAN Hospitalist; CONSULT PHYSICIAN Surgery Vascular Surgery; EMERGENCY PHYSICIAN Emergency Medicine; FAMILY PHYSICIAN Family Medicine
DX: I82.412 Acute embolism and thrombosis of left femoral vein (principal); I82.432 Acute embolism and thrombosis of left popliteal vein; I82.452 Acute embolism and thrombosis of left peroneal vein; I82.442 Acute embolism and thrombosis of left tibial vein; I82.462 Acute embolism and thrombosis of left calf muscular vein; M79.662 Pain in left lower leg; M79.89 Other specified soft tissue disorders; R07.9 Chest pain, unspecified; R20.2 Paresthesia of skin; R42 Dizziness and giddiness; Z86.16 Personal history of COVID-19
CPT/HCPCS: 36005; 37187; 37248; 37252; 71275; 75820; 80048; 80053; 83880; 84484; 85025; 85027; 85730; 86850; 86900; 86901; 93005; 93971; 93978; 96361; 96374; 99285; C1725; C1753; C1769; C1892; C1894; G0378; Q9967

== ENCOUNTER → 2023-10-07 08:33 | Outpatient (REF) | payer BC, SELFPAY | LOC: HWRAD 08:33 | PROVIDERS: ATTENDING PHYSICIAN Surgery Vascular Surgery; FAMILY PHYSICIAN Family Medicine | DX: I87.1 Compression of vein (principal) | CPT/HCPCS: 74174; Q9967 ==

== ENCOUNTER → 2023-10-10 13:52 | Outpatient (REF) | payer BC, SELFPAY | LOC: REG 13:52 | PROVIDERS: ATTENDING PHYSICIAN Surgery Vascular Surgery; FAMILY PHYSICIAN Family Medicine | DX: I87.1 Compression of vein (principal) | CPT/HCPCS: 93971 ==

== ENCOUNTER 2023-12-11 08:46 | Day surgery (SDC) | payer BC, SELFPAY ==
[2023-12-11] VITALS (12 sets, daily range): BP systolic 14–164; BP diastolic 60–118
[2023-12-11 09:39] LABS: Hematocrit 40.1 % (39.0-52.0); Hemoglobin 14.1 g/dL (13.0-18.0); Mean Corp Hgb Conc. 35.2 g/dL (33.0-37.0); Mean Corpuscular Hgb 30.1 pg (27.0-31.0); Mean Corpuscular Volume 85.5 fL (80.0-94.0); Mean Platelet Volume 9.5 fL (7.4-10.4); Platelet Count 208 10^3/uL (130-400); Red Blood Cell Count 4.69 10^6/uL (4.70-6.10); Red Cell Dist. Width 13.4 % (11.5-14.5); White Blood Cell Count 5.5 10^3/uL (4.8-10.8)
[2023-12-11 09:51] LABS: INR 1.15; PT 14.7 Sec (11.4-14.6)
[2023-12-11 09:52] LABS: Blood Urea Nitrogen 12 mg/dl (9-20); Calcium 9.4 mg/dl (8.4-10.2); Carbon Dioxide 27 mmol/L (22-30); Chloride 105 mmol/L (98-107); Glucose 88 mg/dl (70-99); Potassium 4.6 mmol/L (3.5-5.1); Sodium 136 mmol/L (135-145); eGFR > 60.00
--- NOTE | 2023-12-11 12:05 | W.SUR.PREOP ---
Pre-Operative Surgical Note
-
I have examined this patient prior to the performance of the scheduled procedure.
The patient's condition is unchanged from the time of the current History and
Physical and the patient is able to undergo the scheduled procedure.
--- NOTE | 2023-12-11 14:10 | W.SUR.POST ---
Surgical Immediate Post Op
Note
Pre Op Diagnosis: DVT
Post Op Diagnosis: DVT
Procedure Performed: ascending LLE venogram, central venogram, IVUS, left iliac vein stent x2 overlapping
Primary Surgeon: [place]
Anesthesia: local and sedation
Estimated Blood Loss: <2cc
Fluids: see anesthesia flow sheet
Drains/Shunts: none
Specimens/Cultures:none
Doppler/Duplex/Angio (Y/N): Y
Complications: none
Operative Findings: successful stenting
--- NOTE | 2023-12-11 15:59 | OR.RPT ---
Operative Report
Operative Report
PROCEDURE DATE: 12/11/2023
Preoperative diagnosis:
1. History of left lower extremity extensive DVT status post penumbra mechanical aspiration thrombectomy.
2. 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
Postoperative diagnosis: Same
Procedure:
1. Ascending left lower extremity venogram (and ascending right iliac venography) and central venogram via left common femoral vein puncture.
2. Intravascular ultrasound (IVUS).
3. Balloon angioplasty/stent placement left common and external iliac veins with overlapping 20 mm Venous Wallstents (with 20mm x 80mm and 20mm x 40mm stents).
4. Supervision and interpretation.
Surgeon: [place]
Senior Recruitment Consultant: None
Complications: None
Anesthesia: Local, sedation
Fluoroscopy:
15.4 min
174 mGy
41.22 Gy.cm2
Indications for procedure:
43-year-old male who had recent DVT and underwent mechanical thrombectomy due to significant symptoms and proximal common femoral involvement. Found to have May Thurner compression at that time. However due to size of his iliac veins and
unavailability of suitable stents, he was brought back for elective stenting. Risk/benefits/alternatives were all extensively discussed. Patient understood all wish to proceed.
Description of procedure:
Patient was identified, brought to the operating room. Placed on the table in the supine position. After the adequate administration of anesthesia, the patient was prepped and draped in the standard surgical fashion. A standard preoperative
timeout was undertaken and everybody was in agreement with the plan.
The left common femoral vein was punctured using a micropuncture kit under direct duplex ultrasound guidance. A 6 [place] sheath was then advanced over a 0.035 inch wire. Venogram confirmed patency of the external and common iliac veins. Next, I
exchanged for a 10 [place] sheath. I then performed intravascular ultrasound (IVUS) assessment of the iliac veins. I could clearly identify a pancake like severe stenosis right at the crossing of the proximal common iliac artery at the most central
portion of the common iliac vein (confluence). This was in the classic location of a May Thurner compression. I marked these points on the screen (under fluoroscopy anoscopy as well). Therefore I had marked the normal cava just beyond the
stenosis, and more distally the more normal common iliac vein. Prior to proceeding with stenting, I used a brown's the catheter to cannulate the right common iliac vein using up and over technique. I performed venogram (ascending venogram) of
the right iliac veins. This was in order to better identify the confluence of the iliac veins and the origin of the vena cava. Once I was satisfied with all my position/markings, I measured under IVUS the size of the iliac veins. The more central
common iliac vein and 1 measurement was 22 mm. But the remainder of the measurements were on the order of about 18 mm. In addition, the external iliac vein was between 16 to 18 mm. (In largest dimension). Therefore, I felt along 20 mm stent
would be able to seat reasonably. I exchanged for an 11 [place]ese sheath. I then brought into the field a 20 mm x 80 mm venous Wallstent. I positioned this in good position and began on sheath in it. Prior to reaching the point of no return, I
noted that the stent lurched distally (peripherally) basically watermelon seeding at the stenosis. This told me that I needed to gain better purchase beyond the stenosis just into the cava (I had intentionally initially advanced to the couple
millimeters into the cava, but because the stenosis was right at the confluence of the left common iliac vein, it resulted in watermelon seeding). Therefore I reconstrained the stent and then advanced it with better purchase now into the cava. Now
I was satisfied more so with the positioning. And began on sheath and again. It appeared to sit nicely here. I then completed its unsheathing. I then post angioplastied it with 18 mm [place] balloon. Completion venogram demonstrated excellent
seating of the stent in the external iliac vein, in addition the stenotic segment the stent was well-seated and as well. However in the mid common iliac vein there was some flow seen around it. This was not surprising. It appeared that the more
central portion of the stent could be flared slightly more after I performed IVUS again and it appeared there was some nonopposition in the segment. Therefore I then used a 18 mm balloon again more centrally and inflated to higher inflation
pressure. I could see it flare out more so now. IVUS confirmed now much better apposition there. While it was well-seated overall, because there was slight flow around the midportion in the common iliac vein, in order to ensure that the stent
stayed seated, I elected to overlap an additional stent with better purchase into the external iliac vein more peripherally. I therefore then used an additional venous Wallstent measuring 20 mm x 40 mm. I overlapped about half of the stent into
the other stent. I was very satisfied with the positioning and unsheathed it. It flared out nicely. I used the 18 mm balloon again to balloon it. Completion venogram demonstrated excellent positioning. Completion IVUS demonstrated good
positioning as well. At this point is very satisfied. The wires and catheters were withdrawn. A pursestring stitch was placed around the sheath entry site with a nylon suture. The sheath was withdrawn and the stitch was tied down. Manual
pressure was applied to the puncture site as well. Hemostasis was fully achieved. The nylon suture will be removed in the recovery room area in 2 hours. The patient tolerated the procedure well.
The patient tolerated procedure well.
--- NOTE | 2023-12-11 16:56 | W.PA-PDMP ---
[place]-PDMP
-
Checked the [place]- Prescription Drug Monitoring Program website, no red flags identified; safe to proceed with prescription.
== END 2023-12-11 17:05 | disposition home or self-care (01) ==
LOC: CATH 08:46
PROVIDERS: ATTENDING PHYSICIAN Surgery Vascular Surgery; FAMILY PHYSICIAN Physician Assistant Medical
DX: I87.1 Compression of vein (principal); Z86.718 Personal history of other venous thrombosis and embolism
CPT/HCPCS: 37238; 37252; 36005; 35355; 75820; 80048; 85027; 85610; 85730; 86850; 86900; 86901; C1725; C1753; C1769; C1876; C1892; C1894; Q9967

== ENCOUNTER → 2023-12-18 12:23 | Outpatient (REF) | payer BC, SELFPAY | LOC: HWRAD 12:23 | PROVIDERS: ATTENDING PHYSICIAN Surgery Vascular Surgery; FAMILY PHYSICIAN Family Medicine | DX: I87.1 Compression of vein (principal) | CPT/HCPCS: 74174; Q9967 ==

== ENCOUNTER 2024-07-19 04:05 | Inpatient (IN) | payer BC, SELFPAY ==
[2024-07-19] VITALS (12 sets, daily range): BP systolic 112–131; BP diastolic 64–79; BMI 29.9; BMI 29.5
[2024-07-19 00:55] LABS: % Basophils 0.3 % (0-2); % Immature Granulocytes 0.4 % (0-0.5); % Lymphocytes 17.6 % (20.5-51.1); % Neutrophils 71.7 % (42.2-75.2); Absolute Eosinophils 0.1 10^3/uL (0-0.7); Absolute Lymphocytes 1.9 10^3/uL (1.2-3.4); Absolute Neutrophils 7.8 10^3/uL (1.4-6.5); Hemoglobin 13.6 g/dL (13.0-18.0); Mean Corp Hgb Conc. 34.9 g/dL (33.0-37.0); Mean Corpuscular Volume 86.1 fL (80.0-94.0); Mean Platelet Volume 9.5 fL (7.4-10.4); Nucleated Red Blood Cells % 0 % (-); Platelet Count 213 10^3/uL (130-400); Red Blood Cell Count 4.53 10^6/uL (4.70-6.10); White Blood Cell Count 10.9 10^3/uL (4.8-10.8)
--- NOTE | 2024-07-19 01:02 | ED.GENMED ---
History of Present Illness
General
Chief Complaint: Breathing Problem
Source: patient
Exam Limitations: none
Time Seen by Provider: 07/19/24 00:56
History of Present Illness
History of Present Illness:
44-year-old male otherwise healthy presents with gradually worsening pain throughout the day today to the left back. It is associated with breathing. He now notes the pain is more severe than it was at its onset. He denies cough or hemoptysis.
He does note several recent 3-hour drives over the past week. 1 year ago he had a DVT after a long flight. He had been on Eliquis after the flight but is not currently anticoagulated. He does not take any medications currently. No current leg
swelling or calf pain. No known injury
Past History
Past History
ED Past Medical History: None
ED Past Surgical History: Cardiac (As a child)
Phy Exam
Physical Exam
Physical Exam:
General: Well-appearing male uncomfortable use work of breathing
HEENT: Normocephalic atraumatic
Heart: Regular rate and rhythm
Lungs: Breath sounds heard in all childress clear no wheeze
Abdomen is soft nontender nondistended
Scores
Heart Failure Risk
Heart Failure Risk Score: Not Applicable
PESI
Age: 44
Course
Orders/Labs/Results
Orders:
Orders
07/19/24 00:38
Electrocardiogram (*1) Urgent
Reason for Study: Shortness of Breath
EKG- Treatment ONCE
07/19/24 00:42
Complete Blood Count/With Diff Urgent
Comprehensive Metabolic Panel Urgent
07/19/24 01:02
CT Chest Pe Study Urgent
Comment:
Reason For Exam: chest pain, left side
07/19/24 01:21
Ketorolac [Toradol] 15 mg IV NOW STA
Abnormal Lab Results
07/19/24
00:42
WBC 10.9 H 10^3/uL
(4.8-10.8)
RBC 4.53 L 10^6/uL
(4.70-6.10)
Absolute Neuts (auto) 7.8 H 10^3/uL
(1.4-6.5)
Absolute Monos (auto) 1.0 H 10^3/uL
(0.1-0.6)
Lymphocytes % 17.6 L %
(20.5-51.1)
Glucose 115 H mg/dl
(70-99)
07/19/24 00:42
07/19/24 00:42
Vital Signs
Initial and Last Documented VS:
Initial Vital Signs
Temp Pulse Resp BP Pulse Ox
98 F 76 19 124/71 96
07/19/24 00:34 07/19/24 00:34 07/19/24 00:34 07/19/24 00:34 07/19/24 00:34
Last Documented Vital Signs
Temp Pulse Resp BP Pulse Ox
98 F 69 15 124/66 97
07/19/24 00:34 07/19/24 02:30 07/19/24 02:30 07/19/24 02:06 07/19/24 02:30
MDM/Problems Addressed
Differential Diagnosis Includes:
Left posterior chest wall pain with difficulty breathing. Consider PE versus pneumothorax versus dissection versus musculoskeletal pain
Patient quite uncomfortable. He is not a low risk thrombotic patient given his history of DVT in the past. Will order PE study. Labs ordered EKG ordered
*Critical Care Note
Total Time (30-74mins, 75-104mins- exclusive of procedures): Not Applicable
Update Note
Update Note:
CT positive for pulmonary embolism in the left lower lobar pulmonary artery extending into the basilar segmental branches. No CT evidence of right heart strain. Vital signs are stable. Patient uncomfortable. Will start heparin and admit to
hospital for treatment of pulmonary embolism
ED Attending Note
-
Portions of this chart may have been created with voice recognition software.� Occasional wrong word or��sound alike� substitutions may have occurred due to the inherent limitations of voice recognition software.
Discharge Plan
Departure
Patient Disposition: Admit
Date of Disposition: 07/19/24
Time of Disposition: 02:53
Admit to: Telemetry
Presentation/result/management discussed w/ accepting MD/DO: Hospitalist
Discharge Problem:
Pulmonary embolism
Prescriptions:
No Action
tramadol 50 mg tablet
50 mg PO Q8H PRN (Reason: Sev pain) Qty: 14 0RF
aspirin 81 mg tablet,chewable
81 mg PO DAILY Qty: 90 0RF
Eliquis 5 mg Tablet
5 mg PO BID Qty: 120 0RF
oxycodone-acetaminophen [Percocet] 5-325 mg tablet
1 tab PO Q6H PRN (Reason: moderate pain) Qty: 7 0RF
Referrals:
Susie Gonzales MD [Family Provider] -
Interventions
Interventions:
*Risk Screen - Suicide Last Done: 07/19/24 00:39
*General Assessment Last Done: 07/19/24 00:39
*Neglect/Abuse Screening Last Done: 07/19/24 00:39
ED- Fall Risk Assessment Last Done: 07/19/24 02:33
*ED COVID-19 Vaccine History Last Done: 07/19/24 00:39
ED- Cardiac Assessment Last Done: 07/19/24 00:40
ED- Pulmonary Assessment Last Done: 07/19/24 00:40
Discharge Date and Time
Print Language: LAO
[2024-07-19 01:06] LABS: ALT (SGPT) 37 U/L (0-50); AST (SGOT) 24 U/L (17-59); Albumin 4.3 g/dl (3.5-5.0); Alkaline Phosphatase 88 U/L (38-126); Blood Urea Nitrogen 17 mg/dl (9-20); Calcium 8.9 mg/dl (8.4-10.2); Carbon Dioxide 24 mmol/L (22-30); Chloride 103 mmol/L (98-107); Estimated Creatinine Clearance 121 ml/min; Glucose 115 mg/dl (70-99); Potassium 4.5 mmol/L (3.5-5.1); Sodium 136 mmol/L (135-145); Total Bilirubin 0.7 mg/dl (0.2-1.3); eGFR > 60.00
[2024-07-19] MEDS: TORADOL 15 MG IV (01:28)
[2024-07-19] MEDS: HEPARIN 8400 UNITS IV ×2 (03:20→13:52)
[2024-07-19 03:34] LABS: APTT 27.4 Sec (23.4-35.0)
--- NOTE | 2024-07-19 03:45 | HPS.HSE ---
Family Physician
-
Family Physician: Susie Gonzales
Chief Complaint
-
Back pain, SOB
History of Present Illness
Patient is a 44y M with PMH significant for LLE DVT who presents to ED complaining of back pain and SOB. Patient states that he woke Friday AM with some mild L-sided back pain. This progressed throughout the day and was accompanied by shortness
of breath. Patient states that he tried to go to bed this evening but his symptoms became more severe and included radiation of his pain into the L arm. This prompted him to present to the ED for further evaluation.
Patient has prior history of LLE DVT following a flight in September 2023.
He was treated with Eliquis and seen by Vascular Surgery who noted evidence of May-Thurner syndrome.
Patient underwent mechanical thrombectomy and L iliac vein stenting (September and November respectively).
He discontinued his Eliquis in January.
Patient states that he has done quite a bit of driving over the long holiday weekend - including drives of [address] on Friday and and an additional [address] on Friday.
Medical History
Past Medical History
Past Medical History: Reports Other
Additional Past Medical History:
LLE DVT
May-Thurner Syndrome
Past Surgical History: Reports Other
Additional Past Surgical History:
LLE Thrombectomy (09/2023)
Left Iliac Vein Stenting (11/2023)
Right Thumb Surgery
Tympanoplasty
Social History
Tobacco: Non-smoker
Alcohol: Occasional
Drug: None
Family History
Family History: Other (MGF: Throat Cancer MGM: Lung Cancer Family history of: Pancreatic Cancer, Glaucoma)
Allergies / Home Medications
Allergies reflects when Allergies were last updated in [employer].
Home Medications with original date entered in [employer]
Allergy/Medication List:
Allergies
Allergy/AdvReac Type Severity Reaction Status Date / Time
No Known Allergies Allergy Verified 12/05/23 09:00
Home Medications
No Meds [No Current Medications] 07/19/24
Review of Systems
-
History Source: Patient
A 12 point ROS was completed and negative except as noted: Yes
Constitutional: Denies Fever or Chills
Respiratory: Reports Trouble Breathing; Denies Cough
Cardiac: Denies Chest Pain, Diaphoresis or Palpitations
Abdomen/GI: Denies Abdominal Pain, Nausea, Vomiting or Diarrhea
: Denies Dysuria or Frequency
Musculoskeletal: Reports Other (Back Pain.)
Neurological: Denies Dizzy or Headache
Psych: Denies Depression or Anxiety
Physical Exam
Vital Signs
Vital Signs
Temp Pulse Resp BP Pulse Ox
98 F 74 12 126/66 96
07/19/24 00:34 07/19/24 03:15 07/19/24 03:15 07/19/24 03:00 07/19/24 03:15
Physical Exam
General: Other (44y M in mild distress due to back discomfort.)
HEENT: Moist mucous membranes and PERRLA
Respiratory: Clear; No Wheezes, Rales or Rhonchi
Cardiac: S1/S2 and Regular Rhythm; No Murmur
GI: Soft, Non Tender, Non Distended and Normal Bowel Sounds
Musculoskeletal: No Clubbing, No Cyanosis and No Edema
Neuro: AO x 3
Laboratory Results
-
07/19/24 00:42
07/19/24 00:42
Laboratory Results
APTT 27.4 Sec (23.4-35.0) 07/19/24 02:54
Total Bilirubin 0.7 mg/dl (0.2-1.3) 07/19/24 00:42
AST 24 U/L (17-59) 07/19/24 00:42
ALT 37 U/L (0-50) 07/19/24 00:42
Alkaline Phosphatase 88 U/L (38-126) 07/19/24 00:42
Impression/Plan
-
A/P: Patient is a 44y M with PMH significant for LLE DVT who presents to ED complaining of back pain and SOB for the past 24 hours.
Pulmonary Embolism
- Admit for further evaluation and treatment.
- CTA done today shows LLL pulmonary embolism.
- Not tachycardic, hypoxemic or hypotensive. No imaging evidence for right heart strain.
- IV Heparin started in the ED.
- Supportive care / pain control overnight.
- Transition to DOAC prior to discharge.
May-Thurner Syndrome
LLE DVT
- Check LE dopplers for evidence of recurrent / persistent DVT.
- Patient notes that calf thrombus never fully resolved.
- Consider Vasc Sx re-evaluation if evidence of persistent / recurrent thrombus.
Code Status: Full
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
[2024-07-19] MEDS: HEPARIN 25000 UNITS/250 ML IV ×2 (07:09→19:06)
[2024-07-19 08:34] LABS: Blood Urea Nitrogen 16 mg/dl (9-20); Calcium 8.9 mg/dl (8.4-10.2); Carbon Dioxide 28 mmol/L (22-30); Chloride 103 mmol/L (98-107); Estimated Creatinine Clearance 108 ml/min; Glucose 100 mg/dl (70-99); Potassium 4.3 mmol/L (3.5-5.1); Sodium 141 mmol/L (135-145); eGFR > 60.00
--- NOTE | 2024-07-19 12:10 | CM ---
Adm dx - PE
Met with pt and his at bedside
Pt reports he lives with his son in a 2 story home at listed address; 1 step to enter, 12 steps to 2nd fl
Independent, employed FT, drives
DME - none
SNF/HH - denies past hx
Has ride at discharge
PCP - Susie Gonzales
Pharm - [facility]
Plan - anticipate home no needs when medically ready
--- NOTE | 2024-07-19 12:42 | CON.PUL ---
Consultation
Consultation Request
Date/Time Consultation Requested: 07/19/24-12:30 PM
Date/Time Consultation Performed: 07/19/24-12:30 PM
Requesting Provider: hospitalist
Performing Provider: , Dr. Patel
Reason for Consultation: , recurrent clots
Medical History
-
Chief Complaint: , chest pain, shortness of breath
History of Present Illness:
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
emboli-pulmonary consulted for pulmonary embolism 07/19/24.Patient feels better today on heparin. She continues to have 'back spasms, made worse by deep inspiration and pleuritic in nature. Shortness of breath is improved. He currently denies
shortness breath at rest, no chest congestion, productive cough, abdominal pain, nausea, weakness and admits to left lower extremity swelling.
Past Medical History
Past Medical History: None ( Left lower extremity DVT. 09/2023-December Thurner syndrome status post thrombectomy 09/2023/stenting-11/2023 and Eliquis �6 months. Tympanoplasty. Right thumb surgery.)
Social History
Tobacco: Non-smoker
Alcohol: Occasional
Personal:
Living: With Family
Occupational Exposures: . No known asbestos exposure
Environmental Exposures: . No known tuberculosis exposure
Family History
Family History: Reviewed & Not Pertinent and Other (. Maternal grandfather-throat cancer. Maternal grandmother-lung cancer. Family history of pancreatic cancer and glaucoma)
Allergies / Home Medications
Allergies
Allergy/AdvReac Type Severity Reaction Status Date / Time
No Known Allergies Allergy Verified 12/05/23 09:00
Home Medications
�Medication �Instructions �Recorded �Confirmed �Last Taken �Type
No Meds [No Current Medications] 07/19/24 07/19/24 Unknown History
Review of Systems
-
Unable to Obtain full review of systems at this time due to: Other ( per HPI)
Vitals / Labs / Diagnostic Testing
Vital Signs
Temp Pulse Resp BP Pulse Ox
98.1 F 87 16 130/69 99
07/19/24 11:10 07/19/24 11:10 07/19/24 11:10 07/19/24 11:10 07/19/24 11:10
Lab Data
07/19/24 00:42
07/19/24 07:27
Laboratory Results
07/19/24
02:54
APTT 27.4
Diagnostic Testing:
Physical Exam
-
Exam:
HEENT atraumatic normocephalic and anicteric. Heart was regular without murmur. Chest was clear without wheezes or crackles. Integument without rashes or icterus. Neurologic exam without weakness or numbness. Abdomen soft and nondistended.
The patient had no JVD, cyanosis, clubbing or edema.
Assessment
-
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
emboli-pulmonary consulted for pulmonary embolism 07/19/24.
Pulmonary embolism-suspect provoked, No significant right ventricular strain
PESI -55, class I-low risk
Leukocytosis.
Mild hyperglycemia
Conditions present prior to admission:
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
Tympanoplasty.
Right thumb surgery.
Plan
Respiratory decompensation due to acute pulmonary emboli on top of acute versus chronic left lower extremity DVT-history of left lower extremity DVT-unclear if there was complete resolution.
Supplemental oxygen.
Incentive spirometry.
Bedrest for 24 hours.
Heparin drip versus Lovenox 1 mg/kg every 12 hours
Convert to oral anticoagulant-may require lifelong-minimum of 6 months with reevaluation.
Would repeat CT chest, and lower extremity ultrasound in 6 months to ensure clot resolution.
Outpatient PFTs.
Outpatient hematologic [id number] states he was followed by hematology and vascular surgery.
Benefits and risks of thrombolytic/thrombectomy reviewed-risks outweigh benefits-standard of care therapy recommended
Consider vascular surgery evaluation.
Consider CT abdomen and pelvis angiogram to ensure stent patency
Reviewed above recommendations with was present during interview and exam
Outpatient pulmonary follow-up
Studies:
CT chest 09/25/23-no acute disease in the chest, no pulmonary embolism, possibly large nonobstructing left renal stones versus excretion of IV contrast.
CT abdomen and pelvis 10/07/23-lung bases are clear, no effusions, patent IVC and iliac veins, mild compression of proximal left common iliac vein, though not suggestive of May Thurner lesion.
CT abdomen and pelvis 12/18/23-interval stenting of the left common iliac and external iliac veins, stents are patent.
CT chest 07/19/24-pulmonary embolism, left lower lobe, no evidence for right ventricular strain
Lower extremity ultrasound 09/25/23-extensive DVT left lower extremity
Lower extremity ultrasound 10/10/23-occlusive DVT, left femoral, popliteal, peroneal and posterior tibial veins, no thrombus seen. Left common femoral.
Lower extremity ultrasound 07/19/24-nonocclusive DVT, left femoral, popliteal, infrapopliteal veins
Data Reviewed
-
EKG: Report reviewed by me
Radiology: Image personally visualized and interpreted and Report reviewed by me
CT Scan: Image personally visualized and interpreted and Report reviewed by me
Ultrasound: Report reviewed by me
Labs: Labs reviewed by me
Old Records: Reviewed
Total Time Spent with Patient (in minutes): 55
--- NOTE | 2024-07-19 12:59 | W.PN.HOSP.TC ---
Today's Communication/Plan
-
Monitor vital signs and see plan
Pain control
IS
Pulmonary evaluation
cw IV heparin
Nonbillable note
Assessment / Plan
Assessment / Plan
General: Other (44y M in mild distress due to back discomfort.)
HEENT: Moist mucous membranes and PERRLA
Respiratory: Clear; No Wheezes, Rales or Rhonchi
Cardiac: S1/S2 and Regular Rhythm; No Murmur
GI: Soft, Non Tender, Non Distended and Normal Bowel Sounds
Musculoskeletal: No Clubbing, No Cyanosis and No Edema
Neuro: AO x 3
Acute pulmonary Embolism
- CTA done today shows LLL pulmonary embolism.
- Not tachycardic, hypoxemic or hypotensive. No imaging evidence for right heart strain.
Continue with IV heparin, does complain of some back pain and shortness of breath especially with ambulation. Pulmonary evaluation
Pain control
- Transition to DOAC prior to discharge.
May-Thurner Syndrome
LLE DVT
He used to be on Eliquis however stopped around . He did followed up with hematology outpatient. Advised him to follow-up with hematology again outpatient. likely will need lifelong anticoagulation
Lower extremity ultrasound with nonocclusive thrombus, consider vascular surgery evaluation
- Patient notes that calf thrombus never fully resolved.
Code Status: Full
Anticipated Discharge: 24 - 48 hours
Subjective/Interval History
-
Date of Service: July 19, 2024
has pain
Objective Data
-
Labs:
Laboratory Results
07/19/24 07/19/24 07/19/24
00:42 02:54 07:27
APTT 27.4
Sodium 136 141
Potassium 4.5 4.3
Chloride 103 103
Carbon Dioxide 24 28
BUN 17 16
Creatinine 0.9 1.0
Glucose 115 H 100 H
Calcium 8.9 8.9
Total Bilirubin 0.7
AST 24
ALT 37
Alkaline Phosphatase 88
07/19/24
13:10
APTT Pending
Sodium
Potassium
Chloride
Carbon Dioxide
BUN
Creatinine
Glucose
Calcium
Total Bilirubin
AST
ALT
Alkaline Phosphatase
Vital Signs:
Vital Signs
Temp Pulse Resp BP Pulse Ox
98.1 F 87 16 130/69 99
07/19/24 11:10 07/19/24 11:10 07/19/24 11:10 07/19/24 11:10 07/19/24 11:10
[2024-07-19] MEDS: DILAUDID 0.5 MG IV (13:22)
[2024-07-19] MEDS: LIDOCAINE 4% PATCH TOPICAL ×2 (13:23→14:36)
[2024-07-19] MEDS: FLUSH (NSS) 1 FLUSH IV (13:23)
[2024-07-19 13:36] LABS: APTT 60.8 Sec (23.4-35.0)
--- NOTE | 2024-07-19 13:44 | PTCARENOTE ---
Addendum entered by Kelly Manrique RN 07/19/24 15:51:
morphine IV given per OCT-pt verbalized decreased pain. observed pt to be resting, decreased SOB. to CT scan via stretcher with volunteer and returned without incident.
Original Note:
pt c/o left chest and upper back pain. medicated w/IV Dilaudid per OCT @ 1322. pt noted to be SOB. pox on RA 97%. 2L NC O2 placed for comfort.
VS: 77-18-121/72, SR on telemetry, no ectopy noted. Dr Wero Cox notified and EKG done as ordered. monitoring continues.
[2024-07-19] MEDS: MORPHINE SULFATE 1 MG IV ×2 (14:08→17:56)
[2024-07-19] MEDS: FLUSH (NSS) 2 FLUSH IV (14:08)
[2024-07-19] MEDS: TYLENOL 650 MG PO (20:02)
--- NOTE | 2024-07-19 20:30 | PTCARENOTE ---
pt SOB at rest on 2L O2 SpO2=99%. pt reports CP,back, and diaphoretic. lyqv=499.5. administered Tylenol and marcello w/+eff. when reevaluated pt sleeping.
[2024-07-19] MEDS: ROXICODONE 5 MG PO (20:31)
[2024-07-20] VITALS (27 sets, daily range): BP systolic 114–150; BP diastolic 67–108
[2024-07-20] MEDS: ROXICODONE 5 MG PO ×2 (00:05→03:44)
[2024-07-20] MEDS: TYLENOL 650 MG PO ×3 (00:05→23:26)
[2024-07-20] MEDS: MORPHINE SULFATE 1 MG IV ×2 (00:43→04:55)
[2024-07-20 04:00] LABS: % Basophils 0.3 % (0-2); % Eosinophils 0.5 % (0-6); % Immature Granulocytes 0.4 % (0-0.5); % Monocytes 10.6 % (1.7-9.3); % Neutrophils 72.2 % (42.2-75.2); Absolute Eosinophils 0.1 10^3/uL (0-0.7); Absolute Immature Granulocytes 0.1 10^3/uL (0-0.05); Absolute Lymphocytes 1.9 10^3/uL (1.2-3.4); Absolute Monocytes 1.3 10^3/uL (0.1-0.6); Absolute Neutrophils 8.7 10^3/uL (1.4-6.5); Hematocrit 38.8 % (39.0-52.0); Mean Corp Hgb Conc. 33.5 g/dL (33.0-37.0); Mean Corpuscular Hgb 29.5 pg (27.0-31.0); Mean Corpuscular Volume 88.2 fL (80.0-94.0); Mean Platelet Volume 9.6 fL (7.4-10.4); Nucleated Red Blood Cells % 0 % (-); Platelet Count 198 10^3/uL (130-400); Red Cell Dist. Width 13.2 % (11.5-14.5)
[2024-07-20 05:01] LABS: Blood Urea Nitrogen 14 mg/dl (9-20); Calcium 8.9 mg/dl (8.4-10.2); Carbon Dioxide 25 mmol/L (22-30); Chloride 103 mmol/L (98-107); Estimated Creatinine Clearance 121 ml/min; Glucose 117 mg/dl (70-99); Potassium 4.5 mmol/L (3.5-5.1); Sodium 138 mmol/L (135-145); eGFR > 60.00
[2024-07-20 05:13] LABS: Glucose - Point of Care 102 mg/dl (70-99)
[2024-07-20] MEDS: DILAUDID 1 MG IV ×5 (05:22→21:16)
[2024-07-20] MEDS: TORADOL 15 MG IV (05:31)
--- NOTE | 2024-07-20 05:37 | W.PN.UPDATE ---
Update Note
Progress Note Update
QUENCHING MACHINE OPERATOR was called.
RN reported patient was in pain at his chest, back 10/ regardless of Roxicodone, Tylenol and Morphine. 20 minutes after IV morphine 1mg, patient continued to c/o 10/10 'sharp' chest pain. Oxygen via NC demand increased. VS 98.4, 94, 26-30,
136/108 94% 5L. Dx LLL PE, on Heparin drip
patient noted to be breathing shallow, diaphoretic, patient stated ' it hurts to breath'.
IV Dilaudid 1mg stat, 15mg IV Toradol stat ordered
Patient had temp of 101.5, 99.4 in the evening, Tylenol 650mg PO was given twice for pain/fever/
Plan
Fever, elevated WBC 12.0, Will order stat labs, chest Xray, blood culture, lactic acid.
r/o pneumonia, pleural effusion
Patient reports feeling little better, but continuos to have shallow breathing.
will transfer patient to IMU given the status of patient at present.
--- NOTE | 2024-07-20 05:38 | RR ---
pt c/o 9/10 pain - administered marcello and Tylenol w/ no effective. Administered iv morphine w/ no effect. pt stated that he feels horrible. pt c/o pain still 9/10 in chest, back, and shoulder but now it is a sharp pain. pt diaphoretic, increase O2
Pt on 5l at 94%. up=800/108, p=104 temp=98.4. heparin gtt still running. rapid response called. A Rapid Response was called on this patient, please see Rapid Response form.
[2024-07-20 05:55] LABS: INR 1.08; PT 14.3 Sec (11.4-14.6)
[2024-07-20 05:57] LABS: APTT 99.1 Sec (23.4-35.0)
[2024-07-20 05:58] LABS: Lactic Acid 1.1 mmol/L (0.7-2.0)
[2024-07-20 06:06] LABS: Hematocrit 43.5 % (39.0-52.0); Hemoglobin 14.1 g/dL (13.0-18.0); Mean Corp Hgb Conc. 32.4 g/dL (33.0-37.0); Mean Corpuscular Hgb 29.6 pg (27.0-31.0); Mean Corpuscular Volume 91.4 fL (80.0-94.0); Mean Platelet Volume 9.5 fL (7.4-10.4); Platelet Count 257 10^3/uL (130-400); Red Blood Cell Count 4.76 10^6/uL (4.70-6.10); Red Cell Dist. Width 13.2 % (11.5-14.5); White Blood Cell Count 15.2 10^3/uL (4.8-10.8)
[2024-07-20 06:10] LABS: Troponin I < 0.012 ng/ml
[2024-07-20 06:21] LABS: ALT (SGPT) 43 U/L (0-50); AST (SGOT) 31 U/L (17-59); Albumin 4.6 g/dl (3.5-5.0); Alkaline Phosphatase 104 U/L (38-126); Blood Urea Nitrogen 15 mg/dl (9-20); Calcium 9.1 mg/dl (8.4-10.2); Carbon Dioxide 25 mmol/L (22-30); Chloride 102 mmol/L (98-107); Estimated Creatinine Clearance 108 ml/min; Glucose 118 mg/dl (70-99); Potassium 4.8 mmol/L (3.5-5.1); Sodium 139 mmol/L (135-145); Total Bilirubin 1.3 mg/dl (0.2-1.3); Total Protein 7.6 g/dl (6.3-8.2); eGFR > 60.00
[2024-07-20] MEDS: LIDOCAINE 4% PATCH 1 PATCH TOPICAL (07:46)
--- NOTE | 2024-07-20 08:08 | CON.VAS ---
Addendum entered and electronically signed by Edgardo Wright III, MD 07/20/24 11:12:
This patient was seen and examined with MILADIS Agosto. I agree with the history and physical exam as well as the assessment and plan. I have the following additions:
Previous extensive left lower extremity DVT in September 2023
Left common iliac and external iliac vein stenting in the spring 2023
Now returns with PE
Has been off anticoagulation
Left lower extremity duplex reveals residual nonocclusive DVT in the left lower extremity
CT venogram obtained showing a patent left iliac venous system/stent but nonocclusive thrombus in the inferior vena cava below the renal veins.
Patient is currently in the ICU on nasal cannula oxygen
Reports subjective shortness of breath
Continue systemic anticoagulation with therapeutic ptt goal
Obtain transthoracic echocardiogram
IR consult to evaluate for temporary IVC filter placement (jugular approach) to reduce risk of additional embolization
Communicated plan to hospitalist and ICU
Will follow. Call with any questions/concerns
Signed:
Edgardo Wright III, MD
[facility]
[phone] ([phone])
Original Note:
Consultation
Consultation Request
Date/Time Consultation Performed: 07/20/24 0830
Requesting Provider: Hospitalist
Performing Provider: Nicole Vazquez NP-C for Edgardo Wright III, MD
Reason for Consultation: DVT, PE
Medical History
-
Chief Complaint: DVT, PE
History of Present Illness:
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
reporting back pain and shortness of breath. ED evaluation significant for PE in left lower lobe pulmonary artery with extension into the subsegmental left lower lobe pulmonary arteries, prompting admission. Patient was admitted from 09/25/23 to
09/28/23 for LLE DVT following a long flight from [place] to [place], he underwent mechanical aspiration thrombectomy of left femoral and common femoral vein DVT during that admission. He did subsequently undergo stent placement of left common
and external iliac veins for Decemberurner compression of left iliac vein following that admission on 12/11/23. He was considered to have a provoked DVT and discontinued his anticoagulation after recommend treatment length (January/2024). Patient does
endorse long car rides for holiday travel, including drives of [address] on Friday and and an additional [address] venogram demonstrates 'left common iliac stent is patent. Nonocclusive thrombus is seen within
the IVC superior to the stent (and not directly connected to the stent), measuring 5.9 cm in superior-inferior extent. No definite thrombus within the left common femoral vein, external iliac vein, or common femoral vein. No right pelvic DVT.'
Past Vascular Surgery:
09/28/23- Ascending left lower extremity venogram via left popliteal vein puncture. Penumbra mechanical aspiration thrombectomy left femoral and common femoral vein DVT. Balloon angioplasty left femoral vein with 8 mm angioplasty balloon.
Intravascular ultrasound (IVUS) assessment of left femoral/common femoral/iliac veins. Dr. Enio Haynes
12/11/23- Ascending left lower extremity venogram (and ascending right iliac venography) and central venogram via left common femoral vein puncture. Intravascular ultrasound (IVUS). Balloon angioplasty/stent placement left common and external iliac
veins with overlapping 20 mm Venous Wallstents (with 20mm x 80mm and 20mm x 40mm stents). Dr. Enio Haynes
Past Medical History
Past Medical History: Other (DVT)
Past Surgical History: Other (See HPI for vascular surgical intervention )
Social History
Tobacco: Non-Smoker
Personal:
Living: With Family
Allergies / Home Medications
Allergy/AdvReac Type Severity Reaction Status Date / Time
No Known Allergies Allergy Verified 12/05/23 09:00
�Medication �Instructions �Recorded �Confirmed �Type
No Meds [No Current Medications] 07/19/24 07/19/24 History
Review of Systems
-
History Source: Patient
Constitutional: Reports No Symptoms
EENT: Reports No Symptoms
Respiratory: Reports Trouble Breathing
Cardiac: Reports Other (back pain)
Abdomen/GI: Reports No Symptoms
: Reports No Symptoms
Musculoskeletal: Reports Edema (trace LLE edema)
Skin: Reports No Symptoms
Neurological: Reports No Symptoms
Endocrine: Reports No Symptoms
Physical Exam
Vital Signs
Temp Pulse Resp BP Pulse Ox
97.9 F 65 18 123/75 96
07/20/24 08:05 07/20/24 08:00 07/20/24 08:00 07/20/24 07:45 07/20/24 08:00
Lab Results
07/20/24 05:20
07/20/24 05:20
Troponin I < 0.012 ng/ml 07/20/24 05:20
Physical Exam
General: No Apparent Distress
HEENT: Normocephalic, Anicteric and Atraumatic
Respiratory: Accessory Resp Muscle Use
Cardiac: Negative JVD
GI: Soft, Non Tender and Non Distended
Musculoskeletal: Edema (BL LE with trace edema )
Skin: Warm
Neuro: AO x 3
Assessment / Plan
-
Assessment: 44 year old male with past medical history of LLE DVT who presented to ED with acute PE and Nonocclusive thrombus is seen within the IVC
Plan:
Continue anticoagulation, and will obtain echo. Surgical plan per attending, would likely consider IVC filter.
TTE
--- NOTE | 2024-07-20 08:30 | PTCARENOTE ---
Rec'd care of patient at 0700. Patient alert and oriented. Anxious. C/o left pleuritic pain. Improved post Dilaudid. NSR on tele monitor. Palpable pulses. Pulse ox 96-98%. O2 decreased to 2L nc. Lung sounds shallow/diminished/tachypneic. FIGUEROA. States
slight dyspnea at rest. IS encouraged. +BS. Appetite poor. Heparin gtt infusing through RFA INT. PTT due at 0930. Therapeutic x1.
[2024-07-20] MEDS: HEPARIN 25000 UNITS/250 ML IV ×2 (08:43→19:57)
[2024-07-20 09:54] LABS: APTT 100.3 Sec (23.4-35.0)
--- NOTE | 2024-07-20 10:12 | W.PN.PUL.V3 ---
Today's Communication / Plan
-
Heparin drip
Consider IVC filter
Vascular surgery follow-up
Eventual conversion to oral anticoagulant
Assessment
-
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
emboli-pulmonary consulted for pulmonary embolism 07/19/24.
Pulmonary embolism-suspect provoked, No significant right ventricular strain
PESI -55, class I-low risk
Pleurisy-severe
Leukocytosis.
Mild hyperglycemia
Conditions present prior to admission:
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
Tympanoplasty.
Right thumb surgery.
Plan
Respiratory decompensation due to acute pulmonary emboli on top of acute versus chronic left lower extremity DVT-history of left lower extremity DVT-unclear if there was complete resolution.
Supplemental oxygen-attempt to wean
Incentive spirometry-encouraged
Severe pleurisy
EKG, chest x-ray, and troponin unrevealing
Analgesia-Toradol as well as opiates
Once again incentive spirometry encouraged to avoid atelectasis/development of pneumonia/etc.
Heparin drip continues eventually
Eventually convert to oral anticoagulant-may require lifelong-minimum of 6 months with reevaluation.
Would repeat CT chest, and lower extremity ultrasound in 6 months to ensure clot resolution.
Eventual outpatient PFTs.
Outpatient hematologic [id number] states he was followed by hematology and vascular surgery.
Benefits and risks of thrombolytic/thrombectomy reviewed-risks outweigh benefits-standard of care therapy recommended
CT abdomen pelvis 07/19/2024-left common iliac stent patent, nonocclusive thrombus seen in the IVC superior to the stent measuring 5.9 cm, no definitive thrombus within the left common femoral vein, external iliac vein or common femoral vein, no
right pelvic DVT
Vascular surgery evaluation ongoing
Consider IVC altered to prevent any additional clots.
Consider CT abdomen and pelvis angiogram to ensure stent patency
If remains stable and transferred from IMU to telemetry
Reviewed above recommendations with was present during interview and exam
Outpatient pulmonary follow-up
Studies:
CT chest 09/25/23-no acute disease in the chest, no pulmonary embolism, possibly large nonobstructing left renal stones versus excretion of IV contrast.
CT abdomen and pelvis 10/07/23-lung bases are clear, no effusions, patent IVC and iliac veins, mild compression of proximal left common iliac vein, though not suggestive of May Thurner lesion.
CT abdomen and pelvis 12/18/23-interval stenting of the left common iliac and external iliac veins, stents are patent.
CT chest 07/19/24-pulmonary embolism, left lower lobe, no evidence for right ventricular strain
Lower extremity ultrasound 09/25/23-extensive DVT left lower extremity
Lower extremity ultrasound 10/10/23-occlusive DVT, left femoral, popliteal, peroneal and posterior tibial veins, no thrombus seen. Left common femoral.
Lower extremity ultrasound 07/19/24-nonocclusive DVT, left femoral, popliteal, infrapopliteal veins
Subjective Data
-
Date of Service:
Date of Service: July 20, 2024
Chief Complaint: Pulmonary Follow Up, Dyspnea Follow Up and VTE Follow Up
Subjective:
Events from last evening reviewed, severe chest pain, pleurisy, transferred to IMU, received opiates and Toradol with mild relief, vascular surgery saw patient, currently continues with some pleurisy, no shortness of breath at rest, no abdominal pain
Review of Systems
General: Other (Per HPI)
Objective Data
Data Reviewed
Vital Signs / I&O:
Vital Signs
Temp Pulse Resp BP Pulse Ox
97.9 F 69 13 114/75 98
07/20/24 08:05 07/20/24 09:00 07/20/24 09:00 07/20/24 09:00 07/20/24 09:00
Intake and Output
07/19/24 07/20/24 07/21/24
06:59 06:59 06:59
Intake Total 444 / 464 60 / 60
Balance 444 / 464 60 / 60
SaO2: 98
Nasal Cannula flow liters per minute: 2
Physical Exam
General: Respiratory Distress (n)
HEENT: Normocephalic, Anicteric and Moist Mucous Membranes
Cardiovascular: Regular Rhythm, Murmur (n), JVD (n) and Peripheral Edema (Left lower extremity)
Respiratory: Wheeze (n), Crackles (n), Rhonchi (n), Non-Labored Respirations, Accessory Resp Muscle Use (n) and Stridor (n)
GI: Soft, Non Distended and Non Tender
Neurology: Awake, Alert and No Motor Deficits
Skin: Warm, Good Color, Cyanosis (n), Jaundice (n) and Rash (n)
Labs/Micro/Reports
Lab Data
07/20/24 05:20
07/20/24 05:20
Laboratory Results
07/19/24 07/19/24 07/20/24
13:08 19:54 03:29
PT
INR
APTT 60.8 H 165.0 H* 110.0 H
07/20/24 07/20/24
05:20 09:31
PT 14.3
INR 1.08
APTT 99.1 H 100.3 H
--- NOTE | 2024-07-20 10:57 | PTCARENOTE ---
Patient stood at side of bed to void. HR up to 130-140's. Tachypneic. Voided 375 of alon urine. HR quick to recover once back in bed. Currently NSR in the 90's. Awaiting echo.
--- NOTE | 2024-07-20 13:50 | CM ---
CM following re: discharge planning.
Reviewed pt's chart, met with pt.
Per chart review, pt is on RA, vascular surgery following.
Pt lives with spouse and a son in a 2 story home and pt is independent, employed FT, drives
D/C plan: home with anticipated no needs.
CM will follow with discharge plan updates as hospitalization progresses
--- NOTE | 2024-07-20 14:38 | W.PN.HOSP.TC ---
Today's Communication/Plan
-
Monitor vital signs see plan
Wean oxygen as tolerated
Continue with IV heparin
IR evaluation per vascular surgery
Pain control
hematology evaluation
Echo
Assessment / Plan
Assessment / Plan
General: Other (44y M in mild distress due to back discomfort.)
HEENT: Moist mucous membranes and PERRLA
Respiratory: Clear; No Wheezes, Rales or Rhonchi
Cardiac: S1/S2 and Regular Rhythm; No Murmur
GI: Soft, Non Tender, Non Distended and Normal Bowel Sounds
Musculoskeletal: No Clubbing, No Cyanosis and No Edema
Neuro: AO x 3
Acute pulmonary Embolism
- CTA shows LLL pulmonary embolism.
Continue with IV heparin, does complain of some back pain and shortness of breath especially with ambulation. Pulmonary following
Pain control
- Transition to DOAC prior to discharge. hematology evaluation. wondering if coumadin would be needed here
CT abdomen/pelvis with left common iliac stent patent, nonocclusive thrombus seen in the IVC superior to the stent. Vascular surgery following. Consult with IR for possible IVC filter placement.
Chest x-ray appears more likely subsegmental atelectasis. Pro-Kee negative.cw IS
check echo
Acute hypoxic respiratory insufficiency likely secondary to acute PE and atelectasis
monitor; wean oxygen as tolerated
May-Thurner Syndrome
LLE DVT
He used to be on Eliquis however stopped around January/February. He did followed up with hematology outpatient. Advised him to follow-up with hematology again outpatient. likely will need lifelong anticoagulation
Lower extremity ultrasound with nonocclusive thrombus
CT abdomen/pelvis with left common iliac stent patent, nonocclusive thrombus seen in the IVC superior to the stent. Vascular surgery following. Consult with IR for possible IVC filter placement.
Code Status: Full
I spent a total of 52 minutes with the patient or on the floor. More than 50% of this time involved counseling and coordination of care.
Anticipated Discharge: > 48 hours
Subjective/Interval History
-
Date of Service: July 20, 2024
has some sob
Objective Data
-
Labs:
Laboratory Results
07/20/24 07/20/24 07/20/24
03:29 05:20 09:31
WBC 12.0 H 15.2 H
Hgb 13.0 14.1
Hct 38.8 L 43.5
Plt Count 198 257 D
PT 14.3
INR 1.08
APTT 110.0 H 99.1 H 100.3 H
Sodium 138 139
Potassium 4.5 4.8
Chloride 103 102
Carbon Dioxide 25 25
BUN 14 15
Creatinine 0.9 1.0
Glucose 117 H 118 H
Calcium 8.9 9.1
Total Bilirubin 1.3
AST 31
ALT 43
Alkaline Phosphatase 104
Vital Signs:
Vital Signs
Temp Pulse Resp BP Pulse Ox
98.6 F 86 28 130/73 97
07/20/24 11:58 07/20/24 13:00 07/20/24 13:00 07/20/24 13:00 07/20/24 13:00
I&O
07/19/24 07/20/24 07/21/24
06:59 06:59 06:59
Intake Total 444 / 464 140 / 140
Output Total 375 / 375
Balance 444 / 464 -235 / -235
--- NOTE | 2024-07-20 14:38 | CON.ONC ---
Impression
Impression
PE, LLE DVT, 07/20/24 - ?provoked by car travel
LLE DVT, 09/2023 - provoked by travel to [place] in setting of May-Thurner syndrome
s/p thrombectomy and left iliac vein stenting, treated w/ ~4 months Eliquis, stopped in January 2024
thrombophilia testing done (by Dr. Brunner) entirely negative
Plan
Plan
agree w/ heparin, with eventual transition back to Eliquis
Would favor indefinite a/c, though could consider lower dose Eliquis after ~6 months
Await echo, t/c IVC filter
Will follow and plan for outpatient f/u with Dr. Brunner in a few months
Patient History
History of Present Illness
This is a 44 yo M w/ h/o LLE DVT in 09/2023 after travel to [place]. He was diagnosed with May-Thurner syndrome, treated with thrombectomy, stenting and anticoagulation (Eliquis.) He saw Dr. Brunner as outpatient, underwent thrombophilia testing in January
2023 which was negative for any clotting d/o. He was cleared by hematology and vascular surgery to stop Eliquis, and it seems that he also stopped anti-platelet therapy at that time (unclear if that was the recommendation or not.)
He presented to the ER early this morning with progressive dyspnea, chest/arm pain. Imaging showed PE and thrombus in the IVC proximal to the left iliac stent (but not adherent to it) and also in the LLE.
Heparin was started.
Echo is begin done currently.
He's in significant pain and discomfort currently.
Past-Medical/Surgical History
PMH/PSH - as above
SH -
Tobacco: Non-smoker
Alcohol: Occasional
Drug: None
Family History: Other (MGF: Throat Cancer MGM: Lung Cancer Family history of: Pancreatic Cancer, Glaucoma)
Patient Medication
�Medication �Instructions �Recorded �Confirmed �Last Taken �Type
No Meds [No Current Medications] 07/19/24 07/19/24 Unknown History
Active Medications
Generic Name Dose Route Start Last Admin
Trade Name Freq PRN Reason Stop Dose Admin
Acetaminophen 650 mg 07/19/24 05:00 07/20/24 03:43
Acetaminophen 325 Mg Tablet PO 08/16/24 04:59 650 mg
Q4HPRN PRN Administration
Mild Pain / Temp > 101
Heparin Sodium 8,400 units 07/19/24 05:20 07/19/24 13:52
Heparin 80 Units/Kg Iv Rebolus IV 08/16/24 05:19 8,400 units
Q6HPRN PRN Administration
PTT < OR = 64 seconds
Heparin Sodium 4,200 units 07/19/24 05:25
Heparin 40 Units/Kg Iv Rebolus IV 08/16/24 05:24
Q6HPRN PRN
PTT = 64.1 to 72.9 seconds
Hydromorphone HCl 1 mg 07/20/24 05:49 07/20/24 13:15
Hydromorphone 1 Mg/Ml Carpuject IV 08/03/24 05:48 1 mg
Q3HPRN PRN Administration
severe pain
Heparin Sodium 25,000 units in 250 mls @ 0 mls/hr 07/19/24 03:00 07/20/24 08:43
Heparin 21745 Units/250 Ml IV 250 mls
PER PROTOCOL DANIA Administration
Protocol
Per Protocol
Lidocaine 1 patch 07/19/24 12:15 07/20/24 07:46
Lidocaine 4% Topical Patch TOPICAL 08/16/24 12:14 1 patch
DAILY DANIA Administration
Protocol
Oxycodone HCl 5 mg 07/19/24 05:00 07/20/24 03:44
Oxycodone 5 Mg Regular Release Tablet PO 08/02/24 04:59 5 mg
Q4HPRN PRN Administration
Moderate Pain
Patch Removal 0 patch 07/19/24 20:00 07/19/24 20:01
Remove Lidocaine Patch REMOVE 08/16/24 19:59 Not Given
DAILY@1999 [facility]
Sodium Chloride 0 flush 07/19/24 06:00 07/19/24 14:08
Sodium Chloride 0.9% (Flush) Syringe IV 08/16/24 05:59 2 flush
PER PROTOCOL [facility] Administration
Physical Exam
-
General: Appears in Distress; Negative Comfortable
Cardiology: Normal Sinus Rhythm
Psych: Agitated
Labs
Lab Results
WBC 15.2 10^3/uL (4.8-10.8) H 07/20/24 05:20
RBC 4.76 10^6/uL (4.70-6.10) 07/20/24 05:20
Hgb 14.1 g/dL (13.0-18.0) 07/20/24 05:20
Hct 43.5 % (39.0-52.0) 07/20/24 05:20
MCV 91.4 fL (80.0-94.0) 07/20/24 05:20
MCH 29.6 pg (27.0-31.0) 07/20/24 05:20
MCHC 32.4 g/dL (33.0-37.0) L 07/20/24 05:20
RDW 13.2 % (11.5-14.5) 07/20/24 05:20
Plt Count 257 10^3/uL (130-400) D 07/20/24 05:20
MPV 9.5 fL (7.4-10.4) 07/20/24 05:20
Abs Immat Gran (auto) 0.1 10^3/uL (0-0.05) H 07/20/24 03:29
Absolute Neuts (auto) 8.7 10^3/uL (1.4-6.5) H 07/20/24 03:29
Absolute Lymphs (auto) 1.9 10^3/uL (1.2-3.4) 07/20/24 03:29
Absolute Monos (auto) 1.3 10^3/uL (0.1-0.6) H 07/20/24 03:29
Absolute Eos (auto) 0.1 10^3/uL (0-0.7) 07/20/24 03:29
Absolute Basos (auto) 0.0 10^3/uL (0-0.2) 07/20/24 03:29
Immature Gran % 0.4 % (0-0.5) 07/20/24 03:29
Neutrophils % 72.2 % (42.2-75.2) 07/20/24 03:
Lymphocytes % 16.0 % (20.5-51.1) L 07/20/24 03:29
Monocytes % 10.6 % (1.7-9.3) H 07/20/24 03:
Eosinophils % 0.5 % (0-6) 07/20/24 03:29
Basophils % 0.3 % (0-2) 07/20/24 03:29
Creatinine 1.0 mg/dL (0.7-1.3) 07/20/24 05:20
Vital Signs
Vital Signs
Temp Pulse Resp BP Pulse Ox
98.6 F 86 28 130/73 97
07/20/24 11:58 07/20/24 13:00 07/20/24 13:00 07/20/24 13:00 07/20/24 13:00
--- NOTE | 2024-07-20 14:43 | PTCARENOTE ---
ECHO in progress.
--- NOTE | 2024-07-20 15:30 | CARDSERVDEF ---
Echocardiogram with Definity completed after protocol screening completed. Allergies verified.
Patent IV site: __existing 20 P LAC___
IV site flushed with 0.9% NaCl pre and post administration.
Diluted bolus method utilized to enhance visualization of ventricular gruber.
Total volume given: _4.0___ mL
Patient tolerated all procedures well without complications.
--- NOTE | 2024-07-20 18:09 | PTCARENOTE ---
Patient sitting at side of bed to void. HR up to 140's. Shallow, quick breaths noted. Diaphoretic. Assisted back to bed. HR quick to recover. Slow, deep breathing encouraged. Slight improvement noted on tachypnea. Patient continues to breathe
shallow. IS encouraged. Patient anxious and states he cannot tolerate. Emotional support provided.
--- NOTE | 2024-07-20 20:00 | PTCARENOTE ---
Rec'd pt resting in bed, cooperative, anxious, plan of care discussed w/ pt & , requests no pain med at present, ST, bp stable, + pulses, O2 2 liters nc, lungs decr throughout, resp shallow, tachypneic,enc to use IS- reaches 1000, no cough,+
FIGUEROA, + bowel sounds, no bm, refused dinner, enc to take fluids, HNV yet this shift, hep gtt at 2000 units
--- NOTE | 2024-07-20 21:19 | PTCARENOTE ---
c/0m#8 left pleuritic pain, tachypneic, dilaudid 1mg iv given
--- NOTE | 2024-07-20 22:22 | PTCARENOTE ---
stood to void- tachypeic , needs a lot of encourage to relax & deep breathe
[2024-07-20] MEDS: MELATONIN 5 MG PO (23:26)
--- NOTE | 2024-07-20 23:27 | PTCARENOTE ---
sys reviewed, tylenol 650mg po given for temp
[2024-07-21] VITALS (19 sets, daily range): BP systolic 110–134; BP diastolic 68–87; BMI 29.0
[2024-07-21] MEDS: DILAUDID 1 MG IV ×3 (03:11→09:20)
--- NOTE | 2024-07-21 03:15 | PTCARENOTE ---
sys reviewed, dilaudid 1mg iv given for pleuritic pain
[2024-07-21 03:41] LABS: % Basophils 0.2 % (0-2); % Eosinophils 0.4 % (0-6); % Immature Granulocytes 0.4 % (0-0.5); % Lymphocytes 17.1 % (20.5-51.1); % Monocytes 11.9 % (1.7-9.3); Absolute Lymphocytes 1.9 10^3/uL (1.2-3.4); Absolute Monocytes 1.3 10^3/uL (0.1-0.6); Absolute Neutrophils 7.6 10^3/uL (1.4-6.5); Hematocrit 38.2 % (39.0-52.0); Hemoglobin 12.5 g/dL (13.0-18.0); Mean Corp Hgb Conc. 32.7 g/dL (33.0-37.0); Mean Corpuscular Hgb 29.8 pg (27.0-31.0); Mean Platelet Volume 9.6 fL (7.4-10.4); Nucleated Red Blood Cells % 0 % (-); Platelet Count 200 10^3/uL (130-400); Red Cell Dist. Width 13.3 % (11.5-14.5); White Blood Cell Count 10.9 10^3/uL (4.8-10.8)
[2024-07-21 03:50] LABS: APTT 93.7 Sec (23.4-35.0)
[2024-07-21 04:05] LABS: Blood Urea Nitrogen 14 mg/dl (9-20); Calcium 8.7 mg/dl (8.4-10.2); Carbon Dioxide 26 mmol/L (22-30); Chloride 101 mmol/L (98-107); Estimated Creatinine Clearance 121 ml/min; Glucose 105 mg/dl (70-99); Potassium 4.7 mmol/L (3.5-5.1); Sodium 138 mmol/L (135-145); eGFR > 60.00
--- NOTE | 2024-07-21 06:21 | PTCARENOTE ---
dilaudid 1mg iv given for pain
--- NOTE | 2024-07-21 07:36 | PTCARENOTE ---
07:36 patient in bed. On 2L of o2 via nasal canula. Hearing at 2000/20ml infusing via RT FA peripheral line.
AAO x3;
SR 83; S1/S2 No murmur ; BP via RT UA: 114/70 - RR 22 95% /2L No edema +pedal pulses B/L LE warm to touch
Lungs diminished; ON 2L; No SOB reports dyspnea; Chest pain and pleural pain increase in inhalation and activities
Abdomen soft hyperactive BS; Last BM : Wednesday 07/18 ; pt reports poor appetite . denies nausea, no vomiting
Voiding in a urinal denies difficulties voiding
skin intact
peripheral lines: RT FA : heparin no swelling no redness Left AC capped flushed no redness
Call martell within reach
[2024-07-21] MEDS: LIDOCAINE 4% PATCH 1 PATCH TOPICAL (07:48)
[2024-07-21] MEDS: HEPARIN 25000 UNITS/250 ML IV ×2 (08:41→21:20)
[2024-07-21] MEDS: TYLENOL 650 MG PO (09:25)
--- NOTE | 2024-07-21 10:46 | W.PN.ONC2 ---
Today's Communication / Plan
-
Discussed with patient the need for lifelong anticoagulation therapy.
IV heparin for now until stable for discharge and then transition to oral Eliquis after 7-day loading dose of 10 mg PO BID, he should continue on 5 mg PO BID most likely for life although at 6 months can consider dropping to a prophylactic dose
depending on his wishes. In conversation today it sounds like he wishes most likely to stay on the full therapeutic dose.
Impression
Impression
PE, LLE DVT, 07/20/24 - ?provoked by car travel
LLE DVT, 09/2023 - provoked by travel to [place] in setting of May-Thurner syndrome
s/p thrombectomy and left iliac vein stenting, treated w/ ~4 months Eliquis, stopped in January 2024
thrombophilia testing done (by Dr. Brunner) entirely negative
Plan
Plan
agree w/ heparin, with eventual transition back to Eliquis
Would favor indefinite a/c, though could consider lower dose Eliquis after ~6 months
Await echo, t/c IVC filter
Will follow and plan for outpatient f/u with Dr. Brunner in a few months
Subjective/Objective
Chief Complaint
ACS Heme Onc
Subjective
Still with some pleuritic chest pain and shortness of breath but does feel somewhat improved.
Vital Signs:
Vital Signs
Temp Pulse Resp BP Pulse Ox
98.6 F 91 31 131/76 95
07/21/24 08:45 07/21/24 10:00 07/21/24 10:00 07/21/24 09:00 07/21/24 09:00
Lab Results:
Laboratory Data
WBC 10.9 10^3/uL (4.8-10.8) H 07/21/24 03:10
Hgb 12.5 g/dL (13.0-18.0) L 07/21/24 03:10
Plt Count 200 10^3/uL (130-400) D 07/21/24 03:10
PT 14.3 Sec (11.4-14.6) 07/20/24 05:20
INR 1.08 07/20/24 05:20
APTT 93.7 Sec (23.4-35.0) H 07/21/24 03:10
eGFR > 60.00 07/21/24 03:10
Physical Exam
Cardiology: S1, S2 and Other (Tacky)
--- NOTE | 2024-07-21 11:03 | PTCARENOTE ---
patient cough out burgundy blood once. No prior hematosis reported and noted. CXR order. Hgb this am stable. Dr Tamayo and Dr Cox aware.
patient IMU level of care. Transfer to room 3345 via bed. Repot given . Prior to transfer no change from morning assessement noted
[2024-07-21] MEDS: ROXICODONE 5 MG PO ×2 (11:07→20:26)
--- NOTE | 2024-07-21 11:18 | W.PN.PUL.V3 ---
Today's Communication / Plan
-
continue anticoagulation.
Modified hemoptysis.
IVC filter.
Analgesia
Assessment
-
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
emboli-pulmonary consulted for pulmonary embolism 07/19/24.
Pulmonary embolism-suspect provoked, No significant right ventricular strain
PESI -55, class I-low risk
Pleurisy-severe
Hemoptysis-suspect related to pulmonary infarction
Leukocytosis.
Mild hyperglycemia
Conditions present prior to admission:
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
Tympanoplasty.
Right thumb surgery.
Plan
Respiratory decompensation due to acute pulmonary emboli on top of acute versus chronic left lower extremity DVT-history of left lower extremity DVT-unclear if there was complete resolution.
Supplemental oxygen-attempt to wean
Incentive spirometry-encouraged.
Chest x-ray 07/21/24-low lung binders with bibasilar opacifications likely atelectasis
Severe pleurisy and now some hemoptysis.
Quantify hemoptysis-anticoagulation, not a contraindication
EKG, chest x-ray, and troponin unrevealing
Analgesia-Toradol as well as opiates
Once again incentive spirometry encouraged to avoid atelectasis/development of pneumonia/etc.
Echocardiogram 07/20/24-EF 60-65%, no significant valvular disease, PA systolic 39
Heparin drip continues
Eventually convert to oral anticoagulant-may require lifelong-minimum of 6 months with reevaluation.
Would repeat CT chest, and lower extremity ultrasound in 6 months to ensure clot resolution.
Eventual outpatient PFTs.
Outpatient hematologic [id number] states he was followed by hematology and vascular surgery.
Benefits and risks of thrombolytic/thrombectomy reviewed-risks outweigh benefits-standard of care therapy recommended
Hematology evaluation noted-correspondence reviewed
CT abdomen pelvis 07/19/2024-left common iliac stent patent, nonocclusive thrombus seen in the IVC superior to the stent measuring 5.9 cm, no definitive thrombus within the left common femoral vein, external iliac vein or common femoral vein, no
right pelvic DVT
Vascular surgery evaluation ongoing-correspondence reviewed
IVC filter removal to prevent any additional clots-insertion pending
Monitor hemoglobin-currently stable at 13.1
If remains stable and transferred from IMU to telemetry
Reviewed above recommendations with was present during interview and exam
Outpatient pulmonary follow-up
Studies:
CT chest 09/25/23-no acute disease in the chest, no pulmonary embolism, possibly large nonobstructing left renal stones versus excretion of IV contrast.
CT abdomen and pelvis 10/07/23-lung bases are clear, no effusions, patent IVC and iliac veins, mild compression of proximal left common iliac vein, though not suggestive of May Thurner lesion.
CT abdomen and pelvis 12/18/23-interval stenting of the left common iliac and external iliac veins, stents are patent.
CT chest 07/19/24-pulmonary embolism, left lower lobe, no evidence for right ventricular strain
Lower extremity ultrasound 09/25/23-extensive DVT left lower extremity
Lower extremity ultrasound 10/10/23-occlusive DVT, left femoral, popliteal, peroneal and posterior tibial veins, no thrombus seen. Left common femoral.
Lower extremity ultrasound 07/19/24-nonocclusive DVT, left femoral, popliteal, infrapopliteal veins
Subjective Data
-
Date of Service:
Date of Service: July 21, 2024
Chief Complaint: Pulmonary Follow Up, Dyspnea Follow Up and VTE Follow Up
Subjective:
Continues with pleuritic chest pain, some hemoptysis, chest x-ray pending, no increase shortness of breath
Review of Systems
General: Other (Per HPI)
Objective Data
Data Reviewed
Vital Signs / I&O:
Vital Signs
Temp Pulse Resp BP Pulse Ox
98.6 F 91 31 131/76 95
07/21/24 08:45 07/21/24 10:00 07/21/24 10:00 07/21/24 09:00 07/21/24 09:00
Intake and Output
07/20/24 07/21/24 07/22/24
06:59 06:59 06:59
Intake Total 444 / 464 730 / 750 80 / 80
Output Total 900 / 900 300 / 300
Balance 444 / 464 -170 / -150 -220 / -220
SaO2: 95
Nasal Cannula flow liters per minute: 2
Physical Exam
General: Respiratory Distress (n) and Comfortable
HEENT: Normocephalic, Anicteric and Moist Mucous Membranes
Cardiovascular: Regular Rhythm, Murmur (n), JVD (n) and Peripheral Edema (Left lower extremity)
Respiratory: Wheeze (n), Crackles (n), Rhonchi (n), Non-Labored Respirations, Accessory Resp Muscle Use (n) and Stridor (n)
GI: Soft, Non Distended and Non Tender
Neurology: Awake, Alert and No Motor Deficits
Skin: Warm, Good Color, Cyanosis (n), Jaundice (n) and Rash (n)
Labs/Micro/Reports
Lab Data
07/21/24 03:10
Laboratory Results
07/21/24
03:10
APTT 93.7 H
Microbiology
07/20/24 05:30 Blood/Venous Blood Culture - Preliminary
No Growth in 24 hours- Final report to follow
07/20/24 05:20 Bld Arterial Blood Culture - Preliminary
No Growth in 24 hours- Final report to follow
--- NOTE | 2024-07-21 11:23 | PN.CDI ---
CDI
- -
CDI:
Physician Documentation Request
Admit Date: 07/19/24 04:05
Dear Doctor Kenny,
Please review the following and provide your response in the progress notes.
Clinical Indicators:
Pt admitted with acute pulmonary embolism.
07/20 update note: 'Oxygen via NC demand increased. VS 98.4, 94, 26-30, 136/108 94% 5L. Dx LLL PE, on Heparin drip
patient noted to be breathing shallow, diaphoretic, patient stated ' it hurts to breath'
07/20 Vascular Noted on physical exam 'Respiratory: Accessory Resp Muscle Use...Respiratory: Reports Trouble Breathing'
Selected Entries
07/20/24
00:02 07/20/24
05:25 07/20/24
10:12
Resp Rate 26 33
Nasal Cannula flow liters per minute 2 5 2
Clarify which of the following accurately represents the patient's respiratory status:
Acute respiratory failure
Hypoxia only
Other
Additional information for Respiratory Failure:
Recognized criteria for Respiratory Failure (Source: [employer] [facility] Jun 2013)
ABGs: (1 or more) Symptoms Please indicate type if known
1. p)2 <60 or RA SPO2 <91% on RA 1. Tachypnea, SOB, dyspnea Hypoxic
2. pCO2 50 and pH <7.35 2. Use of accessory muscles Hypercapnic
3. pO2 decrease of pCO2 increase by 3. Pallor or cyanosis Hypoxic and Hypercapnic
10 mmHg from baseline if known 4. Anxiety or restlessness Unable to determine
5. Unable to speak in full sentences
Supplemental O2 of > 40% (5LPM) Intubation is not required
Use of terms such as suspected, likely, concern for, or probable (associated with a specific diagnosis that is being evaluated, monitored, or treated as if it exists) are acceptable and can be coded in the inpatient setting, when documented at the
time of discharge.
Thank you,
Mackenzie Barajas RN. BSN
CDI Specialist
Available via [facility] [employer]
Please use your independent medical judgment in providing your response.
[2024-07-21] MEDS: PROTONIX IV 40 MG IV (11:50)
[2024-07-21] MEDS: NSS (PRESERVATIVE FREE) 10 ML IV (11:50)
[2024-07-21 11:54] LABS: Hemoglobin 13.1 g/dL (13.0-18.0)
--- NOTE | 2024-07-21 12:40 | W.PN.UPDATE ---
Update Note
Progress Note Update
- IR asked to evaluate for possible IVC filter placement in setting of recurrent DVT/PE with free floating thrombus within the infrarenal IVC
- Pt currently on IV heparin with plans to transition to Eliquis
- CT from 07/19/24 reviewed. Free floating thrombus within the IVC approximately 2 cm below the inflow of the renal veins. Left iliac vein stents appear patent with some peripheral thrombus/filling defect within the external iliac stent.
- Retrievable ALN filter (brand we use) measures 6 cm in length. I am concerned that if placed, filter legs would not open properly against the IVC thrombus with risk of filter migration and a large part of the thrombus would be above the filter
cone, thereby still placing pt at risk for further emboli. It is also possible that this thrombus has already migrated since prior CT from two days ago (events on the morning of 07/20 noted with worsening chest pain). Would recommend continued
anti-coagulation at this point. Could consider repeat CT imaging of chest and abdomen if clinical course changes and re-eval for possible interventions (i.e. ivc filter or ivc/pe thrombectomy).
--- NOTE | 2024-07-21 12:57 | CM ---
CM following re: discharge planning.
Reviewed pt's chart.
Per Oncology, pt will re-start Eliquis. CM spoke to pt and his spouse and they told me that pt started on Eliquis 4 months ago, they never used free coupon and it expensive up to $100.00 for 30 days. Free coupon for 30 days supplies and $10.00 card
given to the pt and his spouse and spouse stated she will check with pharmacist and pt's insurance.
Pt lives with spouse and a son in a 2 story home and pt is independent, employed FT, drives
D/C plan: home with anticipated no needs. Spouse to transport at discharge.
CM will follow with discharge plan updates as hospitalization progresses
--- NOTE | 2024-07-21 14:01 | W.PN.HOSP.TC ---
Today's Communication/Plan
-
Monitor vital signs see plan
Monitor for hemoptysis
Wean oxygen as tolerated
Continue with heparin
pain control
Assessment / Plan
Assessment / Plan
General: Other (44y M in mild distress due to back discomfort.)
HEENT: Moist mucous membranes and PERRLA
Respiratory: Clear; No Wheezes, Rales or Rhonchi
Cardiac: S1/S2 and Regular Rhythm; No Murmur
GI: Soft, Non Tender, Non Distended and Normal Bowel Sounds
Musculoskeletal: No Clubbing, No Cyanosis and No Edema
Neuro: AO x 3
Acute pulmonary Embolism
- CTA shows LLL pulmonary embolism.
Continue with IV heparin, does complain of some back pain and shortness of breath especially with ambulation. Pulmonary following
Pain control
- Transition to DOAC prior to discharge. hematology following
CT abdomen/pelvis with left common iliac stent patent, nonocclusive thrombus seen in the IVC superior to the stent. Vascular surgery following. Consult with IR for possible IVC filter placement.
Chest x-ray appears more likely subsegmental atelectasis. Pro-Kee negative.cw IS
echo without right heart strain
Associated hemoptysis 07/21. Quantify hemoptysis. Pulmonary aware
Acute hypoxic respiratory failure likely secondary to acute PE and atelectasis
monitor; wean oxygen as tolerated
May-Thurner Syndrome
LLE DVT
He used to be on Eliquis however stopped around January/February. Hematology following, plan for lifelong anticoagulation.
Lower extremity ultrasound with nonocclusive thrombus
CT abdomen/pelvis with left common iliac stent patent, nonocclusive thrombus seen in the IVC superior to the stent. Vascular surgery following. Consulted IR for possible IVC filter placement. Per IR this is very high risk and they would recommend
to continue anticoagulation at this time
Code Status: Full
I spent a total of 53 minutes with the patient or on the floor. More than 50% of this time involved counseling and coordination of care.
Anticipated Discharge: 24 - 48 hours
Subjective/Interval History
-
Date of Service: July 21, 2024
has pain
Objective Data
-
Labs:
Laboratory Results
07/21/24 07/21/24
03:10 11:44
WBC 10.9 H
Hgb 12.5 L 13.1
Hct 38.2 L 39.0
Plt Count 200 D
APTT 93.7 H
Sodium 138
Potassium 4.7
Chloride 101
Carbon Dioxide 26
BUN 14
Creatinine 0.9
Glucose 105 H
Calcium 8.7
Vital Signs:
Vital Signs
Temp Pulse Resp BP Pulse Ox
98.6 F 91 31 131/76 95
07/21/24 08:45 07/21/24 10:00 07/21/24 10:00 07/21/24 09:00 07/21/24 11:18
I&O
07/20/24 07/21/24 07/22/24
06:59 06:59 06:59
Intake Total 444 / 464 730 / 750 80 / 80
Output Total 900 / 900 300 / 300
Balance 444 / 464 -170 / -150 -220 / -220
--- NOTE | 2024-07-21 14:13 | W.PN.UPDATE ---
Update Note
Progress Note Update
Seen and evaluated. Patient notes he feels slightly better today but he is still on exam is slightly tachypneic. O2 sats are 97% on nasal cannula oxygen. Still has chest pain with inspiration. Reviewed and discussed case with IR. Reviewed their
note. Discussed complications in terms of filter placement. Concern for filter strut not reaching wall and concern for filter migration, as well as concern for thrombus dislodging. Suprarenal filter does carry slightly higher risk as well. I do
not think there is necessarily an ideal aspiration or thrombolytic avenue here given that it is nonocclusive thrombus in the cava. Therefore I do not know that a lytic catheter or the available sizes of aspiration type catheters we have would allow
adequate suctioning out of the thrombus. Given that it is not occlusive, if it is well adherent would favor just continued anticoagulation. However, would favor repeat CT scan imaging to see how things are progressing. Discussed with Dr. Hinkle
of interventional radiology and he is in agreement. Will order CTA of the chest PE protocol, and will also reimage the abdomen/pelvis to assess caval thrombus burden. Then we can decide if patient would need anything invasively or benefit from,
but I am leaning towards not. If requires PE thrombectomy, will defer to IR.
[2024-07-21] MEDS: COLACE 100 MG PO ×2 (14:18→20:26)
[2024-07-21] MEDS: MIRALAX PO ×2 (14:18→16:44)
[2024-07-21] MEDS: FLUSH (NSS) 2 FLUSH IV (14:46)
[2024-07-21] MEDS: ZOFRAN 4 MG IV (14:46)
--- NOTE | 2024-07-21 16:00 | PTCARENOTE ---
Assumed care of pt after report from DIRECTOR INSTRUMENTATION. Patient received on 2 L NC and coughed up Blood and clots at time of transfer. Dr. Cox and Dr. Patel notified at the time and transfer remained in place. Heparin gtt infusing at 2000units. Pt is alert
and oriented x3. He is tense and having difficulty taking deep breaths , he was apprehensive in taking p.o. Roxicodone for fear of becoming 'addicted' Pt is clearly splinting breaths and suppressing cough. Pt then agreeable to try p.o. pain me which
was effective for longer period of time this afternoon and appeared to be less guarded with respirations. second cough of blood sputum with clots and then none after that event. NSR-ST on telemetry. transported to Cat Scan accompanied by this RN
without event. Ambulating to BR as he feels need for BM, pt fatigued and dyspneic with exertion. at bedside throughout the day and aware of plan of care.
[2024-07-21] MEDS: COMPAZINE 5 MG IV (19:05)
--- NOTE | 2024-07-21 19:09 | PTCARENOTE ---
Addendum entered by Joann Thomas RN 07/21/24 20:41:
compazine effective for nausea
Original Note:
Patient ate dinner with soft foods, jello and became nauseated again. Too son for Martin, order for Compazine obatined and medication given. pt 's abdomen is distended with hyperactive bowel tones, his passing flatus but no belching.
--- NOTE | 2024-07-21 23:44 | PTCARENOTE ---
No further hemoptysis. Pt resting quietly with even resp on 2 L nc
[2024-07-22] VITALS (11 sets, daily range): BP systolic 107–133; BP diastolic 66–85
--- NOTE | 2024-07-22 04:06 | PTCARENOTE ---
assumed care of patient from previous RN. Patient oxygen sats are in high 90s on 2L O2. Patient sleeping comfortably with even respirations. No complaint of pain thus far. Heparin gtt running at 20. Care on going. call martell in reach.
[2024-07-22 05:41] LABS: % Basophils 0.2 % (0-2); % Eosinophils 1.5 % (0-6); % Immature Granulocytes 0.2 % (0-0.5); % Lymphocytes 20.1 % (20.5-51.1); % Monocytes 10.8 % (1.7-9.3); % Neutrophils 67.2 % (42.2-75.2); Absolute Eosinophils 0.1 10^3/uL (0-0.7); Absolute Lymphocytes 1.9 10^3/uL (1.2-3.4); Absolute Neutrophils 6.4 10^3/uL (1.4-6.5); Hematocrit 36.9 % (39.0-52.0); Hemoglobin 12.6 g/dL (13.0-18.0); Mean Corp Hgb Conc. 34.1 g/dL (33.0-37.0); Mean Corpuscular Hgb 30.7 pg (27.0-31.0); Mean Platelet Volume 9.5 fL (7.4-10.4); Nucleated Red Blood Cells % 0 % (-); Platelet Count 213 10^3/uL (130-400); White Blood Cell Count 9.6 10^3/uL (4.8-10.8)
[2024-07-22 05:53] LABS: APTT 68.9 Sec (23.4-35.0)
[2024-07-22 06:03] LABS: Blood Urea Nitrogen 13 mg/dl (9-20); Calcium 8.6 mg/dl (8.4-10.2); Carbon Dioxide 28 mmol/L (22-30); Chloride 99 mmol/L (98-107); Estimated Creatinine Clearance > 125 ml/min; Glucose 99 mg/dl (70-99); Potassium 4.4 mmol/L (3.5-5.1); Sodium 137 mmol/L (135-145); eGFR > 60.00
[2024-07-22] MEDS: HEPARIN 4200 UNITS IV ×2 (06:12→21:51)
[2024-07-22] MEDS: PROTONIX IV 40 MG IV (08:11)
[2024-07-22] MEDS: COLACE 100 MG PO ×2 (08:11→19:49)
[2024-07-22] MEDS: NSS (PRESERVATIVE FREE) 10 ML IV (08:11)
[2024-07-22] MEDS: LIDOCAINE 4% PATCH TOPICAL (08:12)
[2024-07-22] MEDS: MIRALAX 17 GRAMS PO (08:12)
--- NOTE | 2024-07-22 08:46 | W.PN.ONC ---
Today's Communication / Plan
-
IVC filter deferred by vascular and IR due to location of thrombus and adherence to the wall
Continue heparin
Anticipate heparin to lifelong anticoagulation with DOAC
Impression
Impression
PE, LLE DVT, 07/20/24 recurrent
LLE DVT, 09/2023 - provoked by travel to [place] in setting of May-Thurner syndrome
S/p thrombectomy and left iliac vein stenting, treated w/ ~4 months Eliquis, stopped in January 2024
Thrombophilia testing done without abnormality
Plan
Plan
agree w/ heparin, with eventual transition back to Eliquis
Would favor indefinite a/c, though could consider lower dose Eliquis after ~6 months
Await echo, t/c IVC filter
Will follow and plan for outpatient f/u with Dr. Brunner in a few months
Subjective/Objective
Subjective/Objective
Improved but continues to be tachypneic and short of breath with conversation.
Vital Signs:
Vital Signs
Temp Pulse Resp BP Pulse Ox
98.1 F 76 24 116/66 96
07/22/24 02:58 07/22/24 05:00 07/22/24 05:00 07/22/24 04:00 07/22/24 05:00
Regular at 80 bpm
Without rales or rhonchi
Extremities without significant asymmetry
Lab Results:
Laboratory Data
WBC 9.6 10^3/uL (4.8-10.8) 07/22/24 05:17
Hgb 12.6 g/dL (13.0-18.0) L 07/22/24 05:17
Plt Count 213 10^3/uL (130-400) 07/22/24 05:17
PT 14.3 Sec (11.4-14.6) 07/20/24 05:20
INR 1.08 07/20/24 05:20
APTT 68.9 Sec (23.4-35.0) H 07/22/24 05:17
eGFR > 60.00 07/22/24 05:17
[2024-07-22 09:01] LABS: Urine Albumin Trace (Neg - Trace); Urine Bilirubin Negative (Negative); Urine Character Slightly Cloudy (Clear); Urine Color Yellow; Urine Glucose Negative (Negative); Urine Ketone 1+ (Negative); Urine Leukocyte Negative (Negative); Urine Nitrite Negative (Negative); Urine Occult Blood Negative (Negative); Urine Urobilinogen Negative (Neg - 1+)
--- NOTE | 2024-07-22 09:20 | W.PN.PUL.V3 ---
Today's Communication / Plan
-
Pleurisy and hemoptysis improved
Monitor mild left lower quadrant abdominal pain
Follow hemoglobin
Heparin drip-eventually convert to oral anticoagulant
Check left chest ultrasound-is there enough fluid for thoracentesis
Assessment
-
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
emboli-pulmonary consulted for pulmonary embolism 07/19/24.
Pulmonary embolism-suspect provoked, No significant right ventricular strain
PESI -55, class I-low risk
Pleurisy-severe
Hemoptysis-suspect related to pulmonary infarction
Left pleural effusion-small to moderate
Leukocytosis.
Mild hyperglycemia
Conditions present prior to admission:
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
Tympanoplasty.
Right thumb surgery.
Plan
Respiratory decompensation due to acute pulmonary emboli on top of acute versus chronic left lower extremity DVT-history of left lower extremity DVT-unclear if there was complete resolution.
Supplemental oxygen-attempt to wean
Incentive spirometry-encouraged.
Chest x-ray 07/21/24-low lung binders with bibasilar opacifications likely atelectasis
Follow pleural effusion-consider thoracentesis if increases in size-will check left chest ultrasound to see if there is enough fluid for diagnostic/therapeutic thoracentesis
Severe pleurisy and now some hemoptysis-slowly resolving
Quantify hemoptysis-anticoagulation, not a contraindication
EKG, chest x-ray, and troponin unrevealing
Analgesia-Toradol as well as opiates
Once again incentive spirometry encouraged to avoid atelectasis/development of pneumonia/etc.
Echocardiogram 07/20/24-EF 60-65%, no significant valvular disease, PA systolic 39
Heparin drip continues
Eventually convert to oral anticoagulant--likely will require lifelong-minimum of 6 months with reevaluation.
Would repeat CT chest, and lower extremity ultrasound in 6 months to ensure clot resolution.
Eventual outpatient PFTs.
Outpatient hematologic [id number] states he was followed by hematology and vascular surgery.
Benefits and risks of thrombolytic/thrombectomy reviewed-risks outweigh benefits-standard of care therapy recommended
Hematology evaluation noted-correspondence reviewed-lifelong anticoagulation
CT abdomen pelvis 07/19/2024-left common iliac stent patent, nonocclusive thrombus seen in the IVC superior to the stent measuring 5.9 cm, no definitive thrombus within the left common femoral vein, external iliac vein or common femoral vein, no
right pelvic DVT
Repeat CT chest abdomen and pelvis 07/21/24-previously seen pulm embolism left lower lobe is decreased in size, left subsegmental vessels for pulmonary emboli and no new pulmonary emboli are noted, stable IVC thrombus formation, moderate left pleural
effusion progressed, moderate left lower lobe and mild right lower lobe consolidation-new bilaterally, tiny pericardial effusion
Vascular surgery evaluation ongoing-correspondence reviewed
IVC filter was contemplated and eventually deferred by vascular and interventional radiology due to location of thrombus and adherence to the wall
Monitor hemoglobin-currently stable at 12.6
If remains stable and transferred from IMU to telemetry
Reviewed with nursing
Outpatient pulmonary follow-up
Studies:
CT chest 09/25/23-no acute disease in the chest, no pulmonary embolism, possibly large nonobstructing left renal stones versus excretion of IV contrast.
CT abdomen and pelvis 10/07/23-lung bases are clear, no effusions, patent IVC and iliac veins, mild compression of proximal left common iliac vein, though not suggestive of May Thurner lesion.
CT abdomen and pelvis 12/18/23-interval stenting of the left common iliac and external iliac veins, stents are patent.
CT chest 07/19/24-pulmonary embolism, left lower lobe, no evidence for right ventricular strain
Lower extremity ultrasound 09/25/23-extensive DVT left lower extremity
Lower extremity ultrasound 10/10/23-occlusive DVT, left femoral, popliteal, peroneal and posterior tibial veins, no thrombus seen. Left common femoral.
Lower extremity ultrasound 07/19/24-nonocclusive DVT, left femoral, popliteal, infrapopliteal veins
Subjective Data
-
Date of Service:
Date of Service: July 22, 2024
Chief Complaint: Pulmonary Follow Up, Dyspnea Follow Up and VTE Follow Up
Subjective:
Hemoptysis improved, complains of some mild left lower quadrant abdominal pain, chest pain and pleurisy also improved, no complaints of shortness of breath at rest
Review of Systems
General: Other (Per HPI)
Objective Data
Data Reviewed
Vital Signs / I&O:
Vital Signs
Temp Pulse Resp BP Pulse Ox
97.2 F 76 24 116/66 96
07/22/24 07:15 07/22/24 05:00 07/22/24 05:00 07/22/24 04:00 07/22/24 05:00
Intake and Output
07/21/24 07/22/24 07/23/24
06:59 06:59 06:59
Intake Total 730 / 750 1560 / 1560
Output Total 900 / 900 600 / 600 650 / 650
Balance -170 / -150 960 / 960 -650 / -650
SaO2: 96
Nasal Cannula flow liters per minute: 2
Physical Exam
General: Respiratory Distress (n) and Comfortable
HEENT: Normocephalic, Anicteric and Moist Mucous Membranes
Cardiovascular: Regular Rhythm, Murmur (n), JVD (n) and Peripheral Edema (Left lower extremity)
Respiratory: Wheeze (n), Crackles (n), Rhonchi (n), Non-Labored Respirations, Accessory Resp Muscle Use (n) and Stridor (n)
GI: Soft, Non Distended, Tender (Mild left lower quadrant abdominal pain, no guarding or rebound) and Other (No Wilkinson Garber sign, negative Tipton sign)
Neurology: Awake, Alert and No Motor Deficits
Skin: Warm, Good Color, Cyanosis (n), Jaundice (n) and Rash (n)
Labs/Micro/Reports
Lab Data
07/22/24 05:17
07/22/24 05:17
Laboratory Results
07/22/24
05:17
APTT 68.9 H
Microbiology
07/20/24 05:30 Blood/Venous Blood Culture - Preliminary
No Growth in 48 hours- Final report to follow
07/20/24 05:20 Bld Arterial Blood Culture - Preliminary
No Growth in 48 hours- Final report to follow
[2024-07-22] MEDS: HEPARIN 25000 UNITS/250 ML IV ×2 (09:51→21:56)
--- NOTE | 2024-07-22 11:05 | PTCARENOTE ---
Patient sent for XR and US.
[2024-07-22] MEDS: DULCOLAX 10 MG RECTAL (11:55)
--- NOTE | 2024-07-22 13:12 | W.PN.HOSP.TC ---
Today's Communication/Plan
-
Monitor vital signs see plan
Continue with anticoagulation
Pleurisy and hemoptysis is improving
laxatives,enema
wean o2 as tolerated
Assessment / Plan
Assessment / Plan
General: Other (44y M in mild distress due to back discomfort.)
HEENT: Moist mucous membranes and PERRLA
Respiratory: Clear; No Wheezes, Rales or Rhonchi
Cardiac: S1/S2 and Regular Rhythm; No Murmur
GI: Soft, Non Tender, Non Distended and Normal Bowel Sounds
Musculoskeletal: No Clubbing, No Cyanosis and No Edema
Neuro: AO x 3
Acute pulmonary Embolism
- CTA shows LLL pulmonary embolism.
Continue with IV heparin, does complain of some back pain and shortness of breath especially with ambulation. Pulmonary following
Pain control
- Transition to DOAC prior to discharge. hematology following
CT abdomen/pelvis with left common iliac stent patent, nonocclusive thrombus seen in the IVC superior to the stent. Vascular surgery following. IVC filter is deferred as high risk. repeat CTA appears clot is getting better
Chest x-ray appears more likely subsegmental atelectasis. Pro-Kee negative.cw IS
echo without right heart strain
Associated hemoptysis 07/21. Quantify hemoptysis. Pulmonary following
CT with pleural effusion,very small trivial pericardial effusion; chest US
do not think there is obvious consolidation concerning for PNA. will monitor. no recurrent fever and leukocytosis getting better
pain control for pleurisy which is improving
Acute hypoxic respiratory failure likely secondary to acute PE and atelectasis
monitor; wean oxygen as tolerated
Constipation
on laxatives; try suppository and if it does not work then enema
May-Thurner Syndrome
LLE DVT
He used to be on Eliquis however stopped around January/February. Hematology following, plan for lifelong anticoagulation.
Lower extremity ultrasound with nonocclusive thrombus
CT abdomen/pelvis with left common iliac stent patent, nonocclusive thrombus seen in the IVC superior to the stent. Vascular surgery following. Consulted IR for possible IVC filter placement. Per IR this is very high risk and they would recommend
to continue anticoagulation at this time
Code Status: Full
Anticipated Discharge: 24 - 48 hours
Subjective/Interval History
-
Date of Service: July 22, 2024
denies pain
Objective Data
-
Labs:
Laboratory Results
07/22/24 07/22/24
05:17 13:10
WBC 9.6
Hgb 12.6 L
Hct 36.9 L
Plt Count 213
APTT 68.9 H Pending
Sodium 137
Potassium 4.4
Chloride 99
Carbon Dioxide 28
BUN 13
Creatinine 0.8
Glucose 99
Calcium 8.6
Vital Signs:
Vital Signs
Temp Pulse Resp BP Pulse Ox
97.2 F 75 18 107/85 94
07/22/24 07:15 07/22/24 11:00 07/22/24 10:00 07/22/24 10:00 07/22/24 11:00
I&O
07/21/24 07/22/24 07/23/24
06:59 06:59 06:59
Intake Total 730 / 750 1560 / 1560
Output Total 900 / 900 600 / 600 650 / 650
Balance -170 / -150 960 / 960 -650 / -650
--- NOTE | 2024-07-22 13:43 | W.PN.UPDATE ---
Update Note
Progress Note Update
Seen and evaluated earlier today. This is a late entry. Patient overall feeling better. Less tachypneic. Still some pain with inspiration. But overall looks better. CT angiogram images reviewed by me. Stable PE/slightly improved thrombus
findings. IVC thrombus is completely stable. I compared [id number] CT scan images. No change compared to prior scan. Based on stability, I am recommending continued anticoagulation as a primary modality of treatment for the IVC thrombus. I
discussed via [place] text with Dr. Hinkle re: PE management/indications for invasive therapy. Based on his review, he is in agreement with continue conservative management for now. Will defer to them regarding any invasive treatments for the PE at
this point. Discussed with Dr. Patel as well. Based on some atelectasis and possible left-sided pneumonia/collapse of lung and pleural effusion will defer to them regarding more aggressive pulmonary therapy measures to enhance reexpansion.
[2024-07-22 19:56] LABS: APTT 67.2 Sec (23.4-35.0)
--- NOTE | 2024-07-22 23:05 | PTCARENOTE ---
Patient's ptt came back as 67.2. Per protocol rebolused with 40 units and increased gtt by 200 units. Ordered next ptt for 0400.
[2024-07-23] VITALS (11 sets, daily range): BP systolic 117–130; BP diastolic 70–89
[2024-07-23 05:02] LABS: % Basophils 0.4 % (0-2); % Eosinophils 2.5 % (0-6); % Immature Granulocytes 1.4 % (0-0.5); % Lymphocytes 21.9 % (20.5-51.1); % Monocytes 11.5 % (1.7-9.3); % Neutrophils 62.3 % (42.2-75.2); Absolute Eosinophils 0.2 10^3/uL (0-0.7); Absolute Immature Granulocytes 0.1 10^3/uL (0-0.05); Absolute Lymphocytes 1.7 10^3/uL (1.2-3.4); Absolute Monocytes 0.9 10^3/uL (0.1-0.6); Absolute Neutrophils 4.7 10^3/uL (1.4-6.5); Hematocrit 36.4 % (39.0-52.0); Hemoglobin 12.5 g/dL (13.0-18.0); Mean Corp Hgb Conc. 34.3 g/dL (33.0-37.0); Mean Corpuscular Hgb 30.7 pg (27.0-31.0); Mean Corpuscular Volume 89.4 fL (80.0-94.0); Mean Platelet Volume 9.4 fL (7.4-10.4); Nucleated Red Blood Cells % 0 % (-); Platelet Count 238 10^3/uL (130-400); Red Blood Cell Count 4.07 10^6/uL (4.70-6.10); White Blood Cell Count 7.6 10^3/uL (4.8-10.8)
[2024-07-23 05:17] LABS: APTT 91.8 Sec (23.4-35.0)
[2024-07-23 05:44] LABS: Blood Urea Nitrogen 14 mg/dl (9-20); Calcium 8.7 mg/dl (8.4-10.2); Carbon Dioxide 27 mmol/L (22-30); Chloride 100 mmol/L (98-107); Estimated Creatinine Clearance > 125 ml/min; Glucose 106 mg/dl (70-99); Potassium 4.2 mmol/L (3.5-5.1); Sodium 138 mmol/L (135-145); eGFR > 60.00
[2024-07-23] MEDS: HEPARIN 25000 UNITS/250 ML IV (08:37)
[2024-07-23] MEDS: LIDOCAINE 4% PATCH TOPICAL (08:39)
[2024-07-23] MEDS: MIRALAX 17 GRAMS PO (08:40)
[2024-07-23] MEDS: PROTONIX IV 40 MG IV (08:40)
[2024-07-23] MEDS: COLACE 100 MG PO ×2 (08:40→21:41)
[2024-07-23] MEDS: NSS (PRESERVATIVE FREE) 10 ML IV (08:41)
--- NOTE | 2024-07-23 09:55 | W.PN.PUL.V3 ---
Today's Communication / Plan
-
Convert from heparin to oral anticoagulant
Wean oxygen.
Increase activity.
Outpatient pulmonary follow-up
Assessment
-
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
emboli-pulmonary consulted for pulmonary embolism 07/19/24.
Pulmonary embolism-suspect provoked, No significant right ventricular strain
PESI -55, class I-low risk
Pleurisy-severe
Small left pleural effusion
Hemoptysis-suspect related to pulmonary infarction
Left pleural effusion-small to moderate
Leukocytosis.
Mild hyperglycemia
Conditions present prior to admission:
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
Tympanoplasty.
Right thumb surgery.
Plan
Respiratory decompensation due to acute pulmonary emboli on top of acute versus chronic left lower extremity DVT-history of left lower extremity DVT-unclear if there was complete resolution..
Respiratory status much improved-pleurisy, resolved
Supplemental oxygen-attempt to wean-assess discharge. Supplemental oxygen needs-hopefully will be on room air
Incentive spirometry-encouraged.
Chest x-ray 07/21/24-low lung binders with bibasilar opacifications likely atelectasis.
Chest ultrasound was small to moderate amounts of left pleural fluid
Follow pleural effusion-consider thoracentesis if increases in size-will check left chest ultrasound to see if there is enough fluid for diagnostic/therapeutic thoracentesis
Severe pleurisy and now some hemoptysis-slowly resolving-no more hemoptysis and pleurisy also resolved
Quantify hemoptysis-anticoagulation . Continues, not a contraindication
EKG, chest x-ray, and troponin unrevealing
Analgesia-Toradol as well as opiates-reduce
Once again incentive spirometry encouraged to avoid atelectasis/development of pneumonia/etc.
Echocardiogram 07/20/24-EF 60-65%, no significant valvular disease, PA systolic 39
Heparin drip continues
Can convert to oral anticoagulant--likely will require lifelong-minimum of 6 months with reevaluation-reviewed the primary team
Would repeat CT chest, and lower extremity ultrasound in 6 months to ensure clot resolution.
Eventual outpatient PFTs.
Outpatient hematologic [id number] states he was followed by hematology and vascular surgery.
Benefits and risks of thrombolytic/thrombectomy reviewed-risks outweigh benefits-standard of care therapy recommended
Hematology evaluation noted-correspondence reviewed-lifelong anticoagulation
CT abdomen pelvis 07/19/2024-left common iliac stent patent, nonocclusive thrombus seen in the IVC superior to the stent measuring 5.9 cm, no definitive thrombus within the left common femoral vein, external iliac vein or common femoral vein, no
right pelvic DVT
Repeat CT chest abdomen and pelvis 07/21/24-previously seen pulm embolism left lower lobe is decreased in size, left subsegmental vessels for pulmonary emboli and no new pulmonary emboli are noted, stable IVC thrombus formation, moderate left pleural
effusion progressed, moderate left lower lobe and mild right lower lobe consolidation-new bilaterally, tiny pericardial effusion
Vascular surgery evaluation ongoing-correspondence reviewed
IVC filter was contemplated and eventually deferred by vascular and interventional radiology due to location of thrombus and adherence to the wall
Monitor hemoglobin-currently stable at 12.5
Reviewed with nursing as well as primary team
Outpatient pulmonary follow-up
Studies:
CT chest 09/25/23-no acute disease in the chest, no pulmonary embolism, possibly large nonobstructing left renal stones versus excretion of IV contrast.
CT abdomen and pelvis 10/07/23-lung bases are clear, no effusions, patent IVC and iliac veins, mild compression of proximal left common iliac vein, though not suggestive of May Thurner lesion.
CT abdomen and pelvis 12/18/23-interval stenting of the left common iliac and external iliac veins, stents are patent.
CT chest 07/19/24-pulmonary embolism, left lower lobe, no evidence for right ventricular strain
Lower extremity ultrasound 09/25/23-extensive DVT left lower extremity
Lower extremity ultrasound 10/10/23-occlusive DVT, left femoral, popliteal, peroneal and posterior tibial veins, no thrombus seen. Left common femoral.
Lower extremity ultrasound 07/19/24-nonocclusive DVT, left femoral, popliteal, infrapopliteal veins
Subjective Data
-
Date of Service:
Date of Service: July 23, 2024
Chief Complaint: Pulmonary Follow Up, Dyspnea Follow Up and VTE Follow Up
Subjective:
Doing well, almost no pleurisy, decreased abdominal pain, no chest pain, shortness of breath,
Review of Systems
General: Other (per HPI)
Objective Data
Data Reviewed
Vital Signs / I&O:
Vital Signs
Temp Pulse Resp BP Pulse Ox
98.2 F 98 24 120/77 85
07/23/24 07:00 07/23/24 04:00 07/23/24 04:00 07/23/24 04:00 07/23/24 04:00
Intake and Output
07/22/24 07/23/24 07/24/24
06:59 06:59 06:59
Intake Total 1560 / 1560
Output Total 600 / 600 650 / 650
Balance 960 / 960 -650 / -650
SaO2: 85
Nasal Cannula flow liters per minute: 1
Physical Exam
General: Respiratory Distress (n) and Comfortable
HEENT: Normocephalic, Anicteric and Moist Mucous Membranes
Cardiovascular: Regular Rhythm, Murmur (n), JVD (n) and Peripheral Edema (Left lower extremity)
Respiratory: Wheeze (n), Crackles (n), Rhonchi (n), Non-Labored Respirations, Accessory Resp Muscle Use (n) and Stridor (n)
GI: Soft, Non Distended, Tender (Mild left lower quadrant abdominal pain, no guarding or rebound) and Other (No Wilkinson Garber sign, negative Davis sign)
Neurology: Awake, Alert and No Motor Deficits
Skin: Warm, Good Color, Cyanosis (n), Jaundice (n) and Rash (n)
Labs/Micro/Reports
Lab Data
07/23/24 04:49
07/23/24 04:49
Laboratory Results
07/22/24 07/22/24 07/23/24
13:10 19:38 04:49
APTT 78.0 H 67.2 H 91.8 H
Microbiology
07/20/24 05:30 Blood/Venous Blood Culture - Preliminary
No Growth in 72 hours- Final report to follow
07/20/24 05:20 Bld Arterial Blood Culture - Preliminary
No Growth in 72 hours- Final report to follow
--- NOTE | 2024-07-23 09:56 | PTCARENOTE ---
Assumed care of patient at beginning of this shift from previous RN with heparin infusing at 2400 units/hr. Patient c/o discomfort to his L side but refused lidoderm patch. See worklist for full assessment and vital signs; see MAR for med
administration. Cannot verify accuracy of vital signs prior to 0700.
[2024-07-23] MEDS: ELIQUIS 10 MG PO ×2 (11:55→21:40)
--- NOTE | 2024-07-23 13:38 | W.PN.HOSP.TC ---
Today's Communication/Plan
-
Monitor vital signs see plan
Transition IV heparin to Eliquis
Home O2 evaluation
transfer out of IMU
pain control
Assessment / Plan
Assessment / Plan
General: Other (44y M in mild distress due to back discomfort.)
HEENT: Moist mucous membranes and PERRLA
Respiratory: Clear; No Wheezes, Rales or Rhonchi
Cardiac: S1/S2 and Regular Rhythm; No Murmur
GI: Soft, Non Tender, Non Distended and Normal Bowel Sounds
Musculoskeletal: No Clubbing, No Cyanosis and No Edema
Neuro: AO x 3
Acute pulmonary Embolism
- CTA shows LLL pulmonary embolism.
Continue with IV heparin, does complain of some back pain and shortness of breath especially with ambulation. Pulmonary following
Pain control
- Discussed with pulmonary, now that her symptoms are improving. Transitioned IV heparin to Eliquis and monitor. if no bleeding and tolerates then likely dc soon
CT abdomen/pelvis with left common iliac stent patent, nonocclusive thrombus seen in the IVC superior to the stent. Vascular surgery following. IVC filter is deferred as high risk. repeat CTA appears clot is getting better. plan now for
conservative management with anticoagulant
Chest x-ray appears more likely subsegmental atelectasis. Pro-Kee negative.cw IS
echo without right heart strain
Associated hemoptysis 07/21. Quantify hemoptysis. hemotysios resolved. Pulmonary following
CT with pleural effusion,very small trivial pericardial effusion; chest US
do not think there is obvious consolidation concerning for PNA. will monitor. no recurrent fever and leukocytosis getting better
pain control for pleurisy which is improving
Acute hypoxic respiratory failure likely secondary to acute PE and atelectasis
monitor; wean oxygen as tolerated; now on room air
home o2 eval
Constipation
on laxatives; improved; BM 07/22
May-Thurner Syndrome
LLE DVT
He used to be on Eliquis however stopped around . Hematology following, plan for lifelong anticoagulation.
Lower extremity ultrasound with nonocclusive thrombus
CT abdomen/pelvis with left common iliac stent patent, nonocclusive thrombus seen in the IVC superior to the stent. Vascular surgery following. Consulted IR for possible IVC filter placement. Per IR this is very high risk and they would recommend
to continue anticoagulation at this time
Code Status: Full
Anticipated Discharge: Within 24 hours
Subjective/Interval History
-
Date of Service: July 23, 2024
pain is better
Objective Data
-
Labs:
Laboratory Results
07/23/24 07/23/24
04:49 14:00
WBC 7.6
Hgb 12.5 L
Hct 36.4 L
Plt Count 238
APTT 91.8 H Pending
Sodium 138
Potassium 4.2
Chloride 100
Carbon Dioxide 27
BUN 14
Creatinine 0.8
Glucose 106 H
Calcium 8.7
Vital Signs:
Vital Signs
Temp Pulse Resp BP Pulse Ox
97.6 F 75 23 125/74 92
07/23/24 11:34 07/23/24 10:00 07/23/24 10:00 07/23/24 10:00 07/23/24 10:00
I&O
07/22/24 07/23/24 07/24/24
06:59 06:59 06:59
Intake Total 1560 / 1560
Output Total 600 / 600 650 / 650
Balance 960 / 960 -650 / -650
--- NOTE | 2024-07-23 16:40 | CM ---
O2 1L. Home O2 Assessment ordered.
As per prior CM notes, patient was issued an [employer] card.
Spoke with patient and ; they were informed that MD ordered a home O2 assessment, which will be done tomorrow. Patient expressed that he was hoping to go home today ---> Dr Cox aware.
Plan follow up tomorrow once Home O2 Assessment completed.
Plan home.
--- NOTE | 2024-07-23 18:03 | PTCARENOTE ---
Patient had 2 episodes today where his POx dropped to mid 80s. First episode he was awake and placed on 2L n/c, recovering to 93-94%. He was then taken off O2 to assess RA status. Second episode patient fell asleep and POx dropped; placed on 2L n/c.
He then recovered. Attempted RA; POx 93%. Patient ambulate to BR, denied SOB. After returning to bed, POx dropped to 86%. Placed on O2 2l n/c.
--- NOTE | 2024-07-23 19:30 | PTCARENOTE ---
Pt transferred from IMU during shift change. Received patient AAO*3, VSS on 2L NC. Plan of care discussed with patient along with orientation to room. call martell within reach, bed locked and low to floor. All orders reviewed and acknowledged.
[2024-07-24 03:34] VITALS: BP 119/68
[2024-07-24 07:28] LABS: % Basophils 0.5 % (0-2); % Eosinophils 3.1 % (0-6); % Immature Granulocytes 0.3 % (0-0.5); % Lymphocytes 18.6 % (20.5-51.1); % Monocytes 12.3 % (1.7-9.3); % Neutrophils 65.2 % (42.2-75.2); Absolute Eosinophils 0.2 10^3/uL (0-0.7); Absolute Lymphocytes 1.2 10^3/uL (1.2-3.4); Absolute Monocytes 0.8 10^3/uL (0.1-0.6); Absolute Neutrophils 4.2 10^3/uL (1.4-6.5); Hematocrit 37.1 % (39.0-52.0); Hemoglobin 12.5 g/dL (13.0-18.0); Mean Corp Hgb Conc. 33.7 g/dL (33.0-37.0); Mean Corpuscular Hgb 30.4 pg (27.0-31.0); Mean Corpuscular Volume 90.3 fL (80.0-94.0); Mean Platelet Volume 9.5 fL (7.4-10.4); Nucleated Red Blood Cells % 0 % (-); Platelet Count 281 10^3/uL (130-400); Red Blood Cell Count 4.11 10^6/uL (4.70-6.10); Red Cell Dist. Width 13.1 % (11.5-14.5); White Blood Cell Count 6.5 10^3/uL (4.8-10.8)
[2024-07-24 07:45] VITALS: BP 115/53
[2024-07-24 07:49] LABS: Blood Urea Nitrogen 14 mg/dl (9-20); Calcium 8.9 mg/dl (8.4-10.2); Carbon Dioxide 25 mmol/L (22-30); Chloride 103 mmol/L (98-107); Estimated Creatinine Clearance > 125 ml/min; Glucose 103 mg/dl (70-99); Potassium 4.5 mmol/L (3.5-5.1); Sodium 140 mmol/L (135-145); eGFR > 60.00
--- NOTE | 2024-07-24 09:05 | W.PN.HOSP.TC ---
Addendum entered and electronically signed by Kristopher Cox MD 07/24/24 09:13:
time of discharge 39 minutes
Original Note:
Today's Communication/Plan
-
monitor vitals
see plan
home o2 eval completed and does not require home o2
dc today on eliquis
pulmonary,hematology and vascular f/u outpatient
Assessment / Plan
Assessment / Plan
General: Other (44y M in mild distress due to back discomfort.)
HEENT: Moist mucous membranes and PERRLA
Respiratory: Clear; No Wheezes, Rales or Rhonchi
Cardiac: S1/S2 and Regular Rhythm; No Murmur
GI: Soft, Non Tender, Non Distended and Normal Bowel Sounds
Musculoskeletal: No Clubbing, No Cyanosis and No Edema
Neuro: AO x 3
Acute pulmonary Embolism
- CTA shows LLL pulmonary embolism.
Continue with IV heparin, does complain of some back pain and shortness of breath especially with ambulation. Pulmonary following
Pain control
- Discussed with pulmonary, now that her symptoms are improving. now tolerating eliquis. Off o2. home o2 eval completed and does not require home o2
CT abdomen/pelvis with left common iliac stent patent, nonocclusive thrombus seen in the IVC superior to the stent. Vascular surgery following. IVC filter is deferred as high risk. repeat CTA appears clot is getting better. plan now for
conservative management with anticoagulant
Chest x-ray appears more likely subsegmental atelectasis. Pro-Kee negative.cw IS
echo without right heart strain
Associated hemoptysis 07/21. Quantify hemoptysis. hemotysios resolved. Pulmonary following
CT with pleural effusion,very small trivial pericardial effusion; chest US
do not think there is obvious consolidation concerning for PNA. will monitor. no recurrent fever and leukocytosis getting better
pain control for pleurisy which is improving
Acute hypoxic respiratory failure likely secondary to acute PE and atelectasis
monitor; wean oxygen as tolerated; now on room air
home o2 eval completed and does not require home o2
Constipation
on laxatives; improved; BM 07/22
May-Thurner Syndrome
LLE DVT
He used to be on Eliquis however stopped around . Hematology following, plan for lifelong anticoagulation.
Lower extremity ultrasound with nonocclusive thrombus
CT abdomen/pelvis with left common iliac stent patent, nonocclusive thrombus seen in the IVC superior to the stent. Vascular surgery following. Consulted IR for possible IVC filter placement. Per IR this is very high risk and they would recommend
to continue anticoagulation at this time
Code Status: Full
Anticipated Discharge: Today
Subjective/Interval History
-
Date of Service: July 24, 2024
denies chest pain
Objective Data
-
Labs:
Laboratory Results
07/24/24
06:43
WBC 6.5
Hgb 12.5 L
Hct 37.1 L
Plt Count 281
Sodium 140
Potassium 4.5
Chloride 103
Carbon Dioxide 25
BUN 14
Creatinine 0.8
Glucose 103 H
Calcium 8.9
Vital Signs:
Vital Signs
Temp Pulse Resp BP Pulse Ox
98.7 F 78 20 119/68 97
07/24/24 03:34 07/24/24 03:34 07/24/24 03:34 07/24/24 03:34 07/24/24 03:34
I&O
07/23/24 07/24/24 07/25/24
06:59 06:59 06:59
Intake Total 240 / 240
Output Total 650 / 650
Balance -650 / -650 240 / 240
--- NOTE | 2024-07-24 09:13 | W.DCSUMMARY ---
Discharge Summary
Discharge Data
Date of Admission: 07/19/24
Date of Discharge: 07/24/24
-
Pending Results: No
Hospital Course
44-year-old male with past medical history of DVT, May thurner syndrome came to the hospital with acute pulmonary embolism. Over time patient's oxygenation continued to get worse and he was put on oxygen. There he was seen by vascular surgery and
had CT of the abdomen and pelvis which showed patent left common iliac stent however there was nonocclusive thrombus in the IVC. Thought of IVC filter was entertained however IR thought this procedure was very risky and they did not recommended any
filter and instead wanted conservative management with anticoagulation. Patient was also seen by hematology who recommended possible lifelong anticoagulation. Over time patient pleurisy and chest pain continue to improve and also his oxygen and he
was able to be weaned off O2. Once his symptoms continue to improve and heparin drip was transitioned to Eliquis prior to discharge. On discharge he was instructed to follow-up with all his physicians outpatient.
Discharge Plan
-
Patient Disposition: Home (Routine Discharge)
Discharge Diagnosis/Procedures: Acute pulmonary Embolism
Acute hypoxic respiratory failure likely secondary to acute PE and atelectasis
Hemoptysis
Constipation
IVC thrombus
Diet: As tolerated
Activity: As tolerated
Driving Restrictions: As prior to admission
Bathing Restrictions: None
Others Tests: Ultrasound: 08/17 @ 2pm and 3pm
Activity Restrictions/Additional Instructions:
take 10mg BID until through 07/29
starting 07/30 decrease to 5mg BID
Referrals:
Susie Gonzales MD [Family Provider] - in less than 1 week
Enio Haynes MD [Active] - 08/24/24 3:30 pm (Vascular follow up)
Ghassan Patel MD [Active] - in two to four weeks
Kian Brunner MD [Active] -
Prescriptions:
New
docusate sodium 100 mg Capsule
100 mg PO BID Qty: 0 0RF
Eliquis 5 mg Tablet
10 mg PO BID Qty: 60 0RF
Rx Instructions:
take 10mg BID until through 07/29
starting 07/30 decrease to 5mg BID
acetaminophen 325 mg Tablet
650 mg PO Q4HPRN PRN (Reason: Mild Pain / Temp > 101) Qty: 0 0RF
lidocaine 4 % Adhesive Patch,Medicated
1 patch topical DAILY Qty: 30 0RF
polyethylene glycol 3350 17 gram Powder In Packet
17 g PO DAILY Qty: 0 0RF
oxycodone 5 mg Tablet
5 mg PO Q4HPRN PRN (Reason: Moderate Pain) Qty: 10 0RF
Discharge Orders:
Discharge Patient (As Directed); Ordered 07/24/24
Ordered By: Kristopher Cox
Discharge Date and Time
Discharge Date/Time: 07/24/24 10:03
Print Language: MACEDONIAN
[2024-07-24] MEDS: ELIQUIS 10 MG PO (09:14)
[2024-07-24] MEDS: NSS (PRESERVATIVE FREE) IV (09:15)
[2024-07-24] MEDS: LIDOCAINE 4% PATCH TOPICAL (09:15)
[2024-07-24] MEDS: MIRALAX 17 GRAMS PO (09:15)
[2024-07-24] MEDS: COLACE 100 MG PO (09:15)
[2024-07-24] MEDS: PROTONIX IV IV (09:16)
--- NOTE | 2024-07-24 09:45 | W.PN.PUL3 ---
Today's Communication / Plan
-
Continue loading dose of Eliquis
Outpatient follow-up with hematology for hypercoagulable workup
Maintain SpO2 >90-94%
Increase activity as tolerated
Patient is being prepared for discharge home today. No additional recommendations at this time. Outpatient pulmonary office follow-up will be arranged. Pulmonary service will now sign off. Please reconsult if there are any additional
questions/concerns, or if patient's respiratory status deteriorates.
Assessment
-
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
emboli-pulmonary consulted for pulmonary embolism 07/19/24.
Pulmonary embolism-suspect provoked, No significant right ventricular strain
PESI -55, class I-low risk
Pleurisy-severe
Small left pleural effusion
Hemoptysis-suspect related to pulmonary infarction
Left pleural effusion-small to moderate
Leukocytosis.
Mild hyperglycemia
Conditions present prior to admission:
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
Tympanoplasty.
Right thumb surgery.
Plan
Respiratory decompensation due to acute pulmonary emboli on top of acute versus chronic left lower extremity DVT-history of left lower extremity DVT-unclear if there was complete resolution..
Respiratory status much improved-pleurisy, resolved
Supplemental oxygen-attempt to wean-assess discharge. Supplemental oxygen needs-hopefully will be on room air (on room air as of today on 07/24/2024)
Incentive spirometry-encouraged.
Chest x-ray 07/21/24-low lung binders with bibasilar opacifications likely atelectasis.
Chest ultrasound was small to moderate amounts of left pleural fluid
Follow pleural effusion-chest ultrasound performed on 07/22/2024 shows small to moderate left-sided pleural effusion; appears to be simple hypoechoic fluid, and unlikely to lead to any clinical improvement if it were to be tapped
Severe pleurisy and now some hemoptysis-slowly resolving-no more hemoptysis and pleurisy also resolved
EKG, chest x-ray, and troponin unrevealing
Analgesia-Toradol as well as opiates-reduce
Once again incentive spirometry encouraged to avoid atelectasis/development of pneumonia/etc.
Echocardiogram 07/20/24-EF 60-65%, no significant valvular disease, PA systolic 39
Transitioned from heparin drip to Eliquis yesterday- will likely will require lifelong-minimum of 6 months with reevaluation-reviewed w/ primary team
Would repeat CT chest, and lower extremity ultrasound in 6 months to ensure clot resolution.
Eventual outpatient PFTs.
Outpatient hematologic [id number] states he was followed by hematology and vascular surgery.
Benefits and risks of thrombolytic/thrombectomy reviewed-risks outweigh benefits-standard of care therapy recommended
Hematology evaluation noted-correspondence reviewed-lifelong anticoagulation
CT abdomen pelvis 07/19/2024-left common iliac stent patent, nonocclusive thrombus seen in the IVC superior to the stent measuring 5.9 cm, no definitive thrombus within the left common femoral vein, external iliac vein or common femoral vein, no
right pelvic DVT
Repeat CT chest abdomen and pelvis 07/21/24-previously seen pulm embolism left lower lobe is decreased in size, left subsegmental vessels for pulmonary emboli and no new pulmonary emboli are noted, stable IVC thrombus formation, moderate left pleural
effusion progressed, moderate left lower lobe and mild right lower lobe consolidation-new bilaterally, tiny pericardial effusion
Vascular surgery evaluation ongoing-correspondence reviewed
IVC filter was contemplated and eventually deferred by vascular and interventional radiology due to location of thrombus and adherence to the wall
Monitor hemoglobin-currently stable at 12.5
Reviewed with nursing as well as primary team
Patient is being prepared for discharge home today. No additional recommendations at this time. Outpatient pulmonary office follow-up will be arranged. Pulmonary service will now sign off. Thank you for allowing us to be involved in the care of
this patient. Please reconsult if there are any additional questions/concerns, or if patient's respiratory status deteriorates.
Studies:
CT chest 09/25/23-no acute disease in the chest, no pulmonary embolism, possibly large nonobstructing left renal stones versus excretion of IV contrast.
CT abdomen and pelvis 10/07/23-lung bases are clear, no effusions, patent IVC and iliac veins, mild compression of proximal left common iliac vein, though not suggestive of May Thurner lesion.
CT abdomen and pelvis 12/18/23-interval stenting of the left common iliac and external iliac veins, stents are patent.
CT chest 07/19/24-pulmonary embolism, left lower lobe, no evidence for right ventricular strain
Lower extremity ultrasound 09/25/23-extensive DVT left lower extremity
Lower extremity ultrasound 10/10/23-occlusive DVT, left femoral, popliteal, peroneal and posterior tibial veins, no thrombus seen. Left common femoral.
Lower extremity ultrasound 07/19/24-nonocclusive DVT, left femoral, popliteal, infrapopliteal veins
Subjective Data
-
Date of Service:
Date of Service: July 24, 2024
Chief Complaint: Pulmonary Follow Up, Dyspnea Follow Up and VTE Follow Up
Subjective:
Patient seen and evaluated today at bedside. No acute events reported from overnight. Eager to go home. Currently denies chest pain, [place], nausea, fevers or chills.
Review of Systems
General: Other (Negative unless mentioned above)
Objective Data
Data Reviewed
Vital Signs / I&O / Oxygen:
Vital Signs
Temp Pulse Resp BP Pulse Ox
98.1 F 83 18 115/53 98
07/24/24 07:45 07/24/24 07:45 07/24/24 07:45 07/24/24 07:45 07/24/24 07:45
Intake and Output
07/23/24 07/24/24 07/25/24
06:59 06:59 06:59
Intake Total 240 / 240
Output Total 650 / 650
Balance -650 / -650 240 / 240
SaO2 98
Nasal Cannula flow liters per 1
minute
Physical Exam
General: Respiratory Distress (n) and Comfortable
HEENT: Normocephalic, Anicteric and Moist Mucous Membranes
Cardiovascular: S1-S2, Murmur (n), JVD (n) and Peripheral Edema (Left lower extremity)
Respiratory: Clear, Wheeze (n), Crackles (n), Rhonchi (n), Non-Labored Respirations, Accessory Resp Muscle Use (n) and Stridor (n)
GI: Soft, Non Distended and Tender (Mild left lower quadrant abdominal pain, no guarding or rebound)
Neurology: Awake, Alert and Tremors (n)
Skin: Warm, Cyanosis (n), Jaundice (n) and Rash (n)
Labs/Micro/Reports
Lab Data
07/24/24 06:43
07/24/24 06:43
Laboratory Results
07/23/24
14:00
APTT Cancelled
Microbiology
07/20/24 05:30 Blood/Venous Blood Culture - Preliminary
No Growth in 4 days- Final report to follow
07/20/24 05:20 Bld Arterial Blood Culture - Preliminary
No Growth in 4 days- Final report to follow
== END 2024-07-24 10:03 | disposition home or self-care (01) | DRG 175 ==
LOC: 4 EAST ACU 04:05
PROVIDERS: Internal Medicine; Nurse Practitioner Gerontology; Physician Assistant; ADMITTING PHYSICIAN Hospitalist; ATTENDING PHYSICIAN Internal Medicine; CONSULT PHYSICIAN Internal Medicine Critical Care Medicine; CONSULT PHYSICIAN Internal Medicine Hematology & Oncology; EMERGENCY PHYSICIAN Student in an Organized Health Care Education/Training Program; FAMILY PHYSICIAN Family Medicine; OTHER PHYSICIAN Nurse Practitioner
DX: I26.99 Other pulmonary embolism without acute cor pulmonale (principal); J96.01 Acute respiratory failure with hypoxia; I82.412 Acute embolism and thrombosis of left femoral vein; I82.432 Acute embolism and thrombosis of left popliteal vein; I87.1 Compression of vein; J98.11 Atelectasis; T82.868A Thrombosis due to vascular prosthetic devices, implants and grafts, initial encounter; R04.2 Hemoptysis; Z95.828 Presence of other vascular implants and grafts; K59.00 Constipation, unspecified; Y83.1 Surgical operation with implant of artificial internal device as the cause of abnormal reaction of the patient, or of later complication, without mention of misadventure at the time of the procedure
CPT/HCPCS: 71045; 71275; 74018; 74174; 74177; 76604; 80048; 80053; 81003; 82962; 83605; 84145; 84484; 85014; 85018; 85025; 85027; 85610; 85730; 87040; 93005; 93307; 93970; 96374; 96375; 99285; Q9957; Q9967

== ENCOUNTER → 2024-08-17 13:57 | Outpatient (REF) | payer BC, SELFPAY | LOC: RAD 13:57 | PROVIDERS: ATTENDING PHYSICIAN Surgery Vascular Surgery; FAMILY PHYSICIAN Family Medicine | DX: Z86.718 Personal history of other venous thrombosis and embolism (principal) | CPT/HCPCS: 93971; 93978 ==

== ENCOUNTER → 2025-01-11 08:53 | Outpatient (REF) | payer BC, SELFPAY | LOC: RAD 08:53 | PROVIDERS: ATTENDING PHYSICIAN Nurse Practitioner Adult Health; FAMILY PHYSICIAN Family Medicine | DX: I26.94 Multiple subsegmental thrombotic pulmonary emboli without acute cor pulmonale (principal); Z86.711 Personal history of pulmonary embolism | CPT/HCPCS: 71275; 93970; Q9967 ==

== ENCOUNTER → 2025-02-03 08:26 | Outpatient (REF) | payer BC, SELFPAY | LOC: RAD 08:26 | PROVIDERS: ATTENDING PHYSICIAN Surgery Vascular Surgery; FAMILY PHYSICIAN Family Medicine | DX: Z86.718 Personal history of other venous thrombosis and embolism (principal) | CPT/HCPCS: 93978 ==

== ENCOUNTER 2025-02-23 06:21 | Day surgery (SDC) | payer BC, SELFPAY | END 2025-02-23 09:48 | disposition home or self-care (01) | LOC: GI 06:21 | PROVIDERS: ATTENDING PHYSICIAN Student in an Organized Health Care Education/Training Program; FAMILY PHYSICIAN Family Medicine | DX: Z12.11 Encounter for screening for malignant neoplasm of colon (principal); D12.2 Benign neoplasm of ascending colon; K63.5 Polyp of colon; K57.30 Diverticulosis of large intestine without perforation or abscess without bleeding; Z83.719 Family history of colon polyps, unspecified | CPT/HCPCS: 45385; 45380; 88305 ==

== ENCOUNTER → 2025-07-18 06:40 | Outpatient (REF) | payer BC, SELFPAY | LOC: RAD 06:40 | PROVIDERS: ATTENDING PHYSICIAN Registered Nurse; FAMILY PHYSICIAN Family Medicine; REFERRING PHYSICIAN Surgery Vascular Surgery | DX: I82.512 Chronic embolism and thrombosis of left femoral vein (principal) | CPT/HCPCS: 93978 ==